=== PATIENT | female | born 1930 | race Caucasian/White ===

== ENCOUNTER 2017-04-10 22:03 | Inpatient (IN) | payer OTHER ==
[~2017-04-10] VITALS: Ht 162.6 cm; Wt 60.7 kg
[~2017-04-10 22:03] MED LIST: ASPI-664 PO; CARV6.2579 PO; CHOL20002 PO; CYAN100080 PO; FURO40TA4 PO; HYDR-902 PO; LISI-313 PO; MAGN400C PO; MULTI PO; ONDA4TAB14 PO; SIMV40TA3 PO; SPIR25TA PO
[2017-04-10 22:08] VITALS: Ht 162.6 cm; Wt 60.7 kg
[2017-04-11 00:03] VITALS: TEMP 98
--- NOTE | 2017-04-11 00:09 | ERD ---
ER Documentation Chief Complaint Chief Complaint mid abd pain w/ vomiting x 1 day HPI The patient is a 86-year-old female, presenting to the ER to the ER because of diffuse abdominal pain for 1 day, associated with vomiting and constipation. She has similar symptoms previously from small bowel obstruction, denies fever, chills, neck pain, chest pain, dyspnea, dysuria. Does not smoke nor drink Medical history: Dyslipidemia, cardiomyopathy, history of CHF Past surgical history: Hysterectomy, history of small bowel obstruction ROS All systems reviewed and are negative except as per history of present illness. Medications Home Meds Active Scripts Ondansetron (Ondansetron Odt) 4 Mg Tab.rapdis, 4 MG PO Q6H Y for NAUSEA AND/OR VOMITING, #30 TAB Prov:JUAN MIGUEL ANN MD 04/10/16 Hydrocodone/Acetaminophen ([place] 10-325 Tablet) 1 Each Tablet, 1 TAB PO Q6H Y for PAIN, #12 TAB Prov:JUAN MIGUEL ANN MD 04/10/16 Carvedilol* (Carvedilol*) 6.25 Mg Tablet, 6.25 MG PO BID for 30 Days, TAB 3 Refills Prov:MELISSA MCMILLAN 04/05/16 Furosemide* (Furosemide*) 40 Mg Tablet, 40 MG PO DAILY for 30 Days, TAB 3 Refills Prov:MELISSA MCMILLAN 04/05/16 Lisinopril* (Lisinopril*) 5 Mg Tablet, 5 MG PO DAILY for 30 Days, TAB 3 Refills Prov:MELISSA MCMILLAN 04/05/16 Spironolactone* (Aldactone*) 25 Mg Tablet, 12.5 MG PO DAILY for 30 Days, TAB 3 Refills Prov:MELISSA MCMILLAN 04/05/16 Reported Medications Multivitamins* (Theragran*) 1 Tab Tab, 1 TAB PO DAILY, TAB 04/03/16 Aspirin (Low Dose Aspirin) 81 Mg Tablet.dr, 81 MG PO DAILY, #30 TAB 04/03/16 Cyanocobalamin* (Vitamin B-12*) 1,000 Mcg Tablet.sa, 1000 MCG PO DAILY, TAB 06/23/15 Cholecalciferol (Vitamin D3) (Vitamin D-3) 2,000 Unit Tablet, 2000 UNIT PO DAILY 12/06/13 Magnesium Oxide (Mag Oxide) 400 Mg Capsule, 400 MG PO DAILY, CAP 12/06/13 Simvastatin (Simvastatin) 40 Mg Tablet, 40 MG PO HS 07/14/13 Allergies Allergies: Coded Allergies: Penicillins (Unverified Allergy, Unknown, 04/10/16) PMhx/Soc History of Surgery: Yes (HYSTERECTOMY) Anesthesia Reaction: No Hx Neurological Disorder: No Hx Respiratory Disorders: No Hx Cardiac Disorders: Yes (CARDIOMYOPATHY, CHF) Hx Psychiatric Problems: No Hx Miscellaneous Medical Probl: No Hx Alcohol Use: No Hx Substance Use: No Hx Tobacco Use: No Smoking Status: Never smoker Physical Exam Vitals Vital Signs Date Time Temp Pulse Resp B/P Pulse Ox O2 Delivery O2 Flow Rate FiO2 04/11/17 00:50 98 16 103/73 98 04/11/17 00:03 98.0 20 124/64 98 Room Air 04/10/17 22:08 98.0 126 20 124/64 98 Physical Exam Const: No acute distress. Head: Atraumatic. Eyes: Normal Conjunctiva. ENT: Normal External Ears, Nose and Mouth. Neck: Full range of motion. No meningismus. Resp: Clear to auscultation bilaterally. Cardio: Regular rate and rhythm. Abd: Soft, hypoactive bowel sounds, diffuse abdominal tenderness, no rigidity, rebound, CVA tenderness Skin: No petechiae or rashes. Back: No midline or flank tenderness. Ext: No cyanosis, or edema. Neur: Awake and alert. No focal deficit Psych: Normal Mood and Affect. Result Diagram: 04/11/17 0045 04/11/17 0045 Results 24 hrs Laboratory Tests Test 04/11/17 00:26 04/11/17 00:45 Bedside Urine pH (LAB) 5.5 Bedside Urine Protein (LAB) 1+ Bedside Urine Glucose (UA) Negative Bedside Urine Ketones (LAB) Negative Bedside Urine Blood Trace-intact Bedside Urine Nitrite (LAB) Negative Bedside Urine Leukocyte Esterase (L Negative White Blood Count 13.710^3/ul Red Blood Count 4.3310^6/ul Hemoglobin 13.6g/dl Hematocrit 40.5% Mean Corpuscular Volume 93.5fl Mean Corpuscular Hemoglobin 31.4pg Mean Corpuscular Hemoglobin Concent 33.6g/dl Red Cell Distribution Width 13.4% Platelet Count 15938^3/UL Mean Platelet Volume 10.7fl Neutrophils % 85.5% Lymphocytes % 9.5% Monocytes % 4.2% Eosinophils % 0.1% Basophils % 0.2% Nucleated Red Blood Cells % 0.0/100WBC Neutrophils # 11.710^3/ul Lymphocytes # 1.310^3/ul Monocytes # 0.610^3/ul Eosinophils # 0.010^3/ul Basophils # 0.010^3/ul Nucleated Red Blood Cells # 0.010^3/ul Sodium Level 140mmol/L Potassium Level 4.2mmol/L Chloride Level 99mmol/L Carbon Dioxide Level 27mmol/L Anion Gap 18 Blood Urea Nitrogen 30mg/dl Creatinine 1.07mg/dl Glucose Level 137mg/dl Calcium Level 10.2mg/dl Total Bilirubin 0.9mg/dl Direct Bilirubin 0.00mg/dl Indirect Bilirubin 0.9mg/dl Aspartate Amino Transf (AST/SGOT) 25IU/L Alanine Aminotransferase (ALT/SGPT) 31IU/L Alkaline Phosphatase 76IU/L Total Protein 7.9g/dl Albumin 4.5g/dl Globulin 3.40g/dl Albumin/Globulin Ratio 1.32 Lipase 44U/L Current Medications Medications (Trade) Dose Ordered Sig/Guera Route PRN Reason Start Time Stop Time Status Last Admin Dose Admin Morphine Sulfate (morphine) 2 mg ONCE STAT IV 04/11/17 00:41 04/11/17 00:42 DC 04/11/17 00:56 Ondansetron HCl 4 mg 4 mg ONCE STAT IV 04/11/17 00:41 04/11/17 00:42 DC 04/11/17 00:55 Sodium Chloride 1,000 ml @ 1,000 mls/hr Q1H ONCE IV 04/11/17 02:00 04/11/17 02:59 DC 04/11/17 02:04 Ciprofloxacin/ Dextrose 200 ml @ 200 mls/hr ONCE ONCE IVPB 04/11/17 02:30 04/11/17 03:29 DC 04/11/17 03:15 Metronidazole (Flagyl 500 Mg (Pmx)) 100 ml @ 100 mls/hr ONCE ONCE IVPB 04/11/17 02:30 04/11/17 03:29 DC 04/11/17 04:33 Ondansetron HCl (Zofran Inj) 4 mg Q4H PRN IV nausea 04/11/17 04:30 Morphine Sulfate (morphine) 2 mg Q2H PRN IV pain 04/11/17 04:30 Hydralazine HCl 25 mg 25 mg Q6H PRN PO abp>160 04/11/17 04:30 UNV Sodium Chloride (NS) 1,000 ml @ 75 mls/hr [id number] IV 04/11/17 04:30 Aspirin (Halfprin) 81 mg DAILY PO 04/11/17 09:00 UNV Carvedilol (Coreg) 6.25 mg BID PO 04/11/17 09:00 UNV Lisinopril (Zestril) 5 mg DAILY PO 04/11/17 09:00 UNV Miscellaneous Information 40 mg HS PO 04/11/17 21:00 UNV Procedures/[place] [id number] Radiology Main Line: [phone] DIAGNOSTIC IMAGING REPORT Patient: NAOMIE WELCH : 1930 Age: 86 Sex: F MR #: [id number] DOS: 04/11/17 0041 Ordering MD: KOBE FROST MD Location: E/R Room/Bed: PROCEDURE: CT abdomen and pelvis without intravenous contrast. CLINICAL INDICATION: Pain. TECHNIQUE: CT of the abdomen/pelvis was performed utilizing axial images with reconstructions in sagittal and coronal planes. The administered radiation dose is CTDI 6.7 mGy, DLP 379 mGy-cm. One or more of the following dose reduction techniques were used: automated exposure control, adjustment of the mA and/or kV according to patient size and/or use of iterative reconstruction technique. DICOM images are available. COMPARISON: 04/10/2016 FINDINGS: Visualized Chest: Pulmonary emphysematous changes are present. There is moderate cardiomegaly. Coronary artery calcifications are noted. A small hiatal hernia is noted. Abdomen: The spleen, pancreas, gallbladder,and adrenal glands are unremarkable. The liver is diffusely decreased in attenuation, compatible with hepatic steatosis. The kidneys are without hydronephrosis. No definite urinary calculi are seen. A large cyst is noted off of the interpolar left kidney. There is moderate dilatation of numerous small bowel loops throughout the abdomen. There is an abrupt transition point to collapsed small bowel in the vicinity of axial image 133 of series 2 in the right lower quadrant. Numerous diverticula are noted throughout the descending and sigmoid colon as well as along the right colon. The appendix is not seen. There is no evidence of intra-abdominal adenopathy or free fluid. Vascular calcifications are noted within the aorta and its branches. Pelvis: Prior hysterectomy is noted. The urinary bladder is unremarkable. There is no pelvic adenopathy of free fluid. Osseous structures: Unremarkable. IMPRESSION: Small bowel obstruction with a transition point in the right lower quadrant. Hepatic steatosis. Large left renal cyst. Colonic diverticulosis. RPTAT: HIKT .Kaushik Zambrano MD, MD Date Time Electronically viewed and signed by .Kaushik Zambrano MD, MD on 04/11/2017 02:02 .T/ CC: KOBE FROST MD MEDICAL MAKING DECISION: The patient is a 85-year-old female, presenting with acute small bowel obstruction, acute dehydration, hepatic steatosis, left renal cyst. She was treated with morphine 2 mg IV for pain, Zofran 4 mg IV for nausea , 1 L NS for acute dehydration, NG tube, Cipro IV, Flagyl IV for acute small bowel obstruction The differential diagnoses considered include but are not limited to cholelithiasis, cholecystitis, cystitis, pancreatitis, hepatitis, gastritis, peptic ulcer disease, gastric ulcer, appendicitis, diverticulitis, cholangitis, choledocholithiasis Consultation: I discussed the patient with the on-call surgeon Dr. Barriga at 2: 20 a.m., who was made aware of the lab, treatment, the patient condition. He accepted the consult Departure Diagnosis: Primary Impression: Small bowel obstruction Additional Impressions: Dehydration Hepatic steatosis Renal cyst, left Condition: Stable Comments I discussed the findings with the patient. I discussed the patient with her physician Dr. Cortez at 4 am who was made aware of the lab, the treatment, the patient condition. The patient is admitted to [facility] Disclaimer: Inadvertent spelling and grammatical errors are likely due to EHR/ dictation software use and do not reflect on the overall quality of patient care. Also, please note that the electronic time recorded on this note does not necessarily reflect the actual time of the patient encounter. KOBE FROST MD Apr 11, 2017 00:09
[2017-04-11 00:27] LABS: URINE BLOOD (Dip) POC Trace-intact (NEGATIVE)
[2017-04-11] MEDS ORDERED: morphine 2 MG INJ IV STA (00:41)
[2017-04-11] MEDS ORDERED: ONDANSETRON 4 MG INJ IV STA (00:41)
[2017-04-11 01:09] LABS: BASOPHILS % 0.2 % (0.0-2.0); EOSINOPHILS % 0.1 % (0.0-7.0); HEMATOCRIT 40.5 % (37.0-47.0); HEMOGLOBIN 13.6 g/dl (12.0-16.0); LYMPHOCYTES # 1.3 10^3/ul (0.8-2.9); LYMPHOCYTES % 9.5 % (15.0-51.0); MEAN CORPUSCULAR HEMOGLOBIN 31.4 pg (29.0-33.0); MEAN CORPUSCULAR HGB CONC 33.6 g/dl (32.0-37.0); MEAN CORPUSCULAR VOLUME 93.5 fl (82.0-101.0); MEAN PLATELET VOLUME 10.7 fl (7.4-10.4); MONOCYTE # 0.6 10^3/ul (0.3-0.9); MONOCYTES % 4.2 % (0.0-11.0); NEUTROPHIL # 11.7 10^3/ul (1.6-7.5); NEUTROPHILS % 85.5 % (39.0-77.0); PLATELET COUNT 248 10^3/UL (140-415); RED BLOOD COUNT 4.33 10^6/ul (4.20-5.40); RED CELL DISTRIBUTION WIDTH 13.4 % (11.5-14.5); WHITE BLOOD COUNT 13.7 10^3/ul (4.8-10.8)
[2017-04-11 01:27] LABS: ALBUMIN 4.5 g/dl (3.3-4.9); ALBUMIN/GLOBULIN RATIO 1.32; BILIRUBIN,INDIRECT 0.9 mg/dl (0-1.1); BILIRUBIN,TOTAL 0.9 mg/dl (0.2-1.3); CALCIUM 10.2 mg/dl (8.4-10.2); CREATININE 1.07 mg/dl (0.44-1.00); POTASSIUM 4.2 mmol/L (3.5-5.1); TOTAL PROTEIN 7.9 g/dl (6.1-8.1)
[2017-04-11] MEDS ORDERED: SOD CHLORIDE 0.9% 1,000 ML IV ONE (02:00)
--- NOTE | 2017-04-11 02:02 | RADRPT ---
PROCEDURE: CT abdomen and pelvis without intravenous contrast. CLINICAL INDICATION: Pain. TECHNIQUE: CT of the abdomen/pelvis was performed utilizing axial images with reconstructions in s agittal and coronal planes. The administered radiation dose is CTDI 6.7 mGy, DLP 379 mGy-cm. One or more of the following dose reduction techniques were used: automated exposure control, adjustment of the mA and/or kV according to patient size and/or use of iterative reconstruction technique. DICOM images are available. COMPARISON: 04/10/2016 FINDINGS: Visualized Chest: Pulmonary emphysematous changes are present. There is moderate cardiomegaly. Coron calista artery calcifications are noted. A small hiatal hernia is noted. Abdomen: The spleen, pancreas, gallbladder,and adrenal glands are unremarkable. The liver is diffusely dec reased in attenuation, compatible with hepatic steatosis. The kidneys are without hydronephrosis. No definite urinary calculi are seen. A large cyst is noted off of the interpolar left kidney. There is moderate dilatation of numerous small bowel loops throughout the abdomen. There is an abrup t transition point to collapsed small bowel in the vicinity of axial image 133 of series 2 in the ri ght lower quadrant. Numerous diverticula are noted throughout the descending and sigmoid colon as we ll as along the right colon. The appendix is not seen. There is no evidence of intra-abdominal adenopathy or free fluid. Vascular calcifications are noted within the aorta and its branches. Pelvis: Prior hysterectomy is noted. The urinary bladder is unremarkable. There is no pelvic adenopathy of free fluid. Osseous structures: Unremarkable. IMPRESSION: Small bowel obstruction with a transition point in the right lower quadrant. Hepatic steatosis. Large left renal cyst. Colonic diverticulosis. RPTAT: HIKT .Kaushik Zambrano MD, MD Date Time Electronically viewed and signed by .Kaushik Zambrano MD, on 04/11/2017 02:02 .T/
[2017-04-11] MEDS ORDERED: metroNIDAZOLE 500 MG/NS (PMX) 100 ML IVPB ONE (02:30)
[2017-04-11] MEDS ORDERED: CIPROFLOXACIN 400MG/D5W 200 ML IVPB ONE (02:30)
[2017-04-11] MEDS ORDERED: ONDANSETRON 4 MG INJ IV PRN (04:30)
--- NOTE | 2017-04-11 05:13 | RADRPT ---
PROCEDURE: XR Chest. CLINICAL INDICATION: Nasogastric tube placement TECHNIQUE: An AP view of the chest was obtained. COMPARISON: CR CHEST 04/10/2016; CR CHEST 04/03/2016; CR CHEST 06/23/2015; CR CHEST 10/27/2013 FINDINGS: The to the nasogastric tube projects over the mid upper abdomen. Lung volumes are low. There is prominence and coarsening of the interstitial markings. No pleural effusion or pneumothorax is seen. The cardiomediastinal silhouette is mildly enlarged. Calcificati ons are seen within the aortic arch. The osseous structures demonstrate senescent changes. IMPRESSION: 1. Chronic-appearing interstitial changes with probable superimposed interstitial edema, increased w hen compared to the prior examination 2. Mild cardiomegaly and aortic atherosclerosis. 3. Nasogastric tube in good position within the gastric lumen. RPTAT: HH .Unique Bonilla MD, Date Time Electronically viewed and signed by .Unique Bonilla MD, on 04/11/2017 05:13 .G/
[2017-04-11 05:48] VITALS: BP 101/52; RESP 18
[2017-04-11] MEDS: SOD CHLORIDE 0.9% 1,000 ML IV SCH ×2 (07:28→17:50)
[2017-04-11] MEDS: morphine 2 MG INJ IV PRN ×2 (07:28→11:16)
[2017-04-11 08:02] VITALS: BP 120/56; RESP 20
[2017-04-11] MEDS: LISINOPRIL 5 MG TAB PO SCH (09:00)
[2017-04-11] MEDS: ASPIRIN (EC) 81 MG TAB PO SCH ×2 (09:00→11:14)
[2017-04-11] MEDS ORDERED: NACL 0.9% 3 ML SYG IV SCH (12:00)
[2017-04-11] MEDS ORDERED: ACETAMINOPHEN 325 MG TAB PO PRN (12:00)
--- NOTE | 2017-04-11 12:08 | HP ---
Date/Time of Note Date/Time of Note DATE: 04/11/17 TIME: 11:37 Assessment/Plan VTE Prophylaxis VTE Prophylaxis Intervention: SCD's Lines/Catheters IV Catheter Type (from Nrs): Peripheral IV Assessment/Plan Assessment/Plan 86-year-old female with: 1. Small bowel obstruction on CAT scan of the abdomen and pelvis with the right lower quadrant, patient still with ongoing abdominal pain, however relieved with morphine. NG tube in place and to suction. Keep n.p.o. Continue IV fluids General surgery, Dr Barriga, consult pending and will follow-up recommendations , for now, will plan for a small bowel follow-through in a.m. 2. 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 She has been euvolemic. She has been compliant with her medications. 3. Congestive heart failure, chronic systolic dysfunction, patient euvolemic. Agree with normal saline at 75 cc/hr. 4. Moderate to severe mitral regurgitation, followed by cardiology as an outpatient. She has been stable. 5. Pulmonary hypertension: Respiratory status remains stable. 6. Hypertension: Blood pressure has been stable actually, we are holding her blood pressure medications. Prophylaxis: Protonix for GI prophylaxis, SCDs to lower extremity for DVT prophylaxis Disposition: N.p.o., NG tube, general surgery consult pending, small bowel follow-through in a.m. 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 She reports that these symptoms are similar to the one she was having a year and a half ago when she was admitted with small bowel obstruction. CAT scan of the abdomen and pelvis in the emergency department did show small bowel obstruction with a transition point in the right lower quadrant. Patient was placed n.p.o., NG tube placed. She is euvolemic, this morning she is having less nausea and vomiting with her NG tube to low intermittent suction however she still having abdominal pain requiring morphine for pain control. According to ER physician documentation, Dr. Barriga, from general surgery was called and he will be seeing the patient. Patient denies any chest pains or shortness of breath. She is currently on room air and well tolerated. ROS Constitutional: nausea Eyes: no complaints ENT: no complaints Respiratory: no complaints Cardiovascular: no complaints Gastrointestinal: nausea, pain (Abdomen and pain), vomiting Genitourinary: no complaints Musculoskeletal: no complaints Skin: no complaints Neurologic: no complaints Endocrine: no complaints Lymphatic: no complaints Psychological: no complaints Immunologic: no complaints PMH/Family/Social Past Medical History 1. Severe mitral regurgitation. The patient reports that she was diagnosed with congestive heart failure in 2001. 2. Congestive heart failure, chronic systolic dysfunction, EF 25%. 3. Hypertension 4. Pulmonary hypertension. 5. Previous episodes of small bowel obstruction, conservatively treated in the past and thought to be related to adhesions possibly Past Surgical History 1. Status post total hysterectomy, remotely. 2. Status post partial colectomy, remotely. Family History Significant Family History: no pertinent family hx Social History Alcohol Use: occasionally Smoking Status: Former smoker ( quit smoking 6 years ago and she used to smoke sporadically for 6 years) Drug Use: none Exam/Review of Systems Vital Signs Vitals Vital Signs Date Time Temp Pulse Resp B/P Pulse Ox O2 Delivery O2 Flow Rate FiO2 04/11/17 08:02 98.2 95 20 120/56 92 04/11/17 05:03 Room Air Exam Constitutional: alert, oriented, well developed Respiratory: clear to auscultation, normal air movement Cardiovascular: nl pulses, regular rate and rhythm Gastrointestinal: soft, tender (Diffuse mid abdomen more or less) Musculoskeletal: nl extremities to inspection, nl gait and stance Extremities: normal pulses 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, nl mental status, nl speech, nl strength Labs Result Diagram: 04/11/174404/11/1744 Medications Medications Current Medications Ondansetron HCl (Zofran Inj) 4 mg Q4H PRN IV nausea; Start 04/11/17 at 04:30 Morphine Sulfate (morphine) 2 mg Q2H PRN IV pain Last administered on 11:16; Admin Dose 2 MG; Start 04/11/17 at 04:30 Hydralazine HCl 25 mg 25 mg Q6H PRN PO abp>160; Start 04/11/17 at 04:30 Sodium Chloride (NS) 1,000 ml @ 75 mls/hr [id number] IV Last administered on 07:28; Admin Dose 75 MLS/HR; Start 04/11/17 at 04:30 Aspirin (Halfprin) 81 mg DAILY PO Last administered on 04/11/17 11:14; Admin Dose 81 MG; Start 04/11/17 at 09:00 Carvedilol (Coreg) 6.25 mg BID PO ; Start 04/11/17 at 09:00 Lisinopril (Zestril) 5 mg DAILY PO ; Start 04/11/17 at 09:00 Atorvastatin Calcium (Lipitor) 20 mg DAILY@21 PO ; Start 04/11/17 at 21:00 Procedures Procedures PROCEDURE: CT abdomen and pelvis without intravenous contrast. CLINICAL INDICATION: Pain. TECHNIQUE: CT of the abdomen/pelvis was performed utilizing axial images with reconstructions in sagittal and coronal planes. The administered radiation dose is CTDI 6.7 mGy, DLP 379 mGy-cm. One or more of the following dose reduction techniques were used: automated exposure control, adjustment of the mA and/or kV according to patient size and/or use of iterative reconstruction technique. DICOM images are available. COMPARISON: 04/10/2016 FINDINGS: Visualized Chest: Pulmonary emphysematous changes are present. There is moderate cardiomegaly. Coronary artery calcifications are noted. A small hiatal hernia is noted. Abdomen: The spleen, pancreas, gallbladder,and adrenal glands are unremarkable. The liver is diffusely decreased in attenuation, compatible with hepatic steatosis. The kidneys are without hydronephrosis. No definite urinary calculi are seen. A large cyst is noted off of the interpolar left kidney. There is moderate dilatation of numerous small bowel loops throughout the abdomen. There is an abrupt transition point to collapsed small bowel in the vicinity of axial image 133 of series 2 in the right lower quadrant. Numerous diverticula are noted throughout the descending and sigmoid colon as well as along the right colon. The appendix is not seen. There is no evidence of intra-abdominal adenopathy or free fluid. Vascular calcifications are noted within the aorta and its branches. Pelvis: Prior hysterectomy is noted. The urinary bladder is unremarkable. There is no pelvic adenopathy of free fluid. Osseous structures: Unremarkable. IMPRESSION: Small bowel obstruction with a transition point in the right lower quadrant. Hepatic steatosis. Large left renal cyst. Colonic diverticulosis. RPTAT: HIKT .Kuashik Zambrano MD, MD Date Time Electronically viewed and signed by .Kaushik Zambrano MD, on 04/11/2017 02:02 MELISSA MCMILLAN Apr 11, 2017 11:48 Colonic diverticulosis. RPTAT: HIKT .Kaushik Zambrano MD, Date Time Electronically viewed and signed by .Kaushik Zambrano MD, MD on 04/11/2017 02:02 MELISSA MCMILLAN Apr 11, 2017 11:48
[2017-04-11 15:47] VITALS: BP 115/57; RESP 18
[2017-04-11 19:53] VITALS: BP 116/67; RESP 20
[2017-04-11] MEDS: ATORVASTATIN 20 MG TAB PO SCH (21:00)
[2017-04-11 23:31] VITALS: BP 117/58; RESP 20
[2017-04-12] MEDS: SOD CHLORIDE 0.9% 1,000 ML IV SCH ×2 (02:15→21:35)
[2017-04-12 06:37] LABS: ALBUMIN 3.5 g/dl (3.3-4.9); ALBUMIN/GLOBULIN RATIO 1.4; BILIRUBIN,INDIRECT 0.6 mg/dl (0-1.1); BILIRUBIN,TOTAL 0.6 mg/dl (0.2-1.3); CALCIUM 8.8 mg/dl (8.4-10.2); CREATININE 0.87 mg/dl (0.44-1.00); MAGNESIUM 2.1 mg/dl (1.7-2.5); PHOSPHORUS 3.2 mg/dl (2.5-4.9)
[2017-04-12] MEDS: morphine 2 MG INJ IV PRN (06:46)
[2017-04-12] MEDS: PANTOPRAZOLE 40 MG INJ IV SCH (06:46)
[2017-04-12 07:14] VITALS: BP 117/61; RESP 19
[2017-04-12 08:17] LABS: BASOPHIL # 0.1 10^3/ul (0.0-0.1); BASOPHILS % 0.5 % (0.0-2.0); EOSINOPHILS # 0.2 10^3/ul (0.0-0.5); EOSINOPHILS % 1.4 % (0.0-7.0); HEMATOCRIT 35.6 % (37.0-47.0); HEMOGLOBIN 11.6 g/dl (12.0-16.0); LYMPHOCYTES # 2.1 10^3/ul (0.8-2.9); LYMPHOCYTES % 19.8 % (15.0-51.0); MEAN CORPUSCULAR HGB CONC 32.6 g/dl (32.0-37.0); MEAN CORPUSCULAR VOLUME 95.2 fl (82.0-101.0); MONOCYTE # 0.9 10^3/ul (0.3-0.9); MONOCYTES % 8.3 % (0.0-11.0); NEUTROPHIL # 7.3 10^3/ul (1.6-7.5); NEUTROPHILS % 69.6 % (39.0-77.0); PLATELET COUNT 197 10^3/UL (140-415); RED BLOOD COUNT 3.74 10^6/ul (4.20-5.40); RED CELL DISTRIBUTION WIDTH 13.8 % (11.5-14.5); WHITE BLOOD COUNT 10.5 10^3/ul (4.8-10.8)
[2017-04-12] MEDS ORDERED: IOHEXOL 300MG/ML 150 ML BTL ONE (09:21)
[2017-04-12] MEDS ORDERED: IOHEXOL 300MG/ML 30 ML BTL ONE (09:21)
--- NOTE | 2017-04-12 10:36 | RADRPT ---
PROCEDURE: Small-bowel follow-through examination CLINICAL INDICATION: Abdominal pain, concern for obstruction TECHNIQUE: Isovue contrast was administered the enteric tube and several spot and overhead radiogr aphs were obtained. COMPARISON: CT of the abdomen and pelvis dated April 11, 2017 FINDINGS: Operations Controller image of the abdomen pelvis demonstrates an enteric tube with its tip in the stomach. There ar e degenerative changes of the lumbar spine. There is no acute abnormality. Progressive radiographs over the course of 30 minutes demonstrate contrast within the stomach, small bowel, and colon. There are mildly dilated loops of small bowel measuring up to 3.5 cm in diameter. There is no complete obstruction identified. IMPRESSION: 1. Enteric contrast reaches the large bowel in 30 minutes indicating there is no complete obstructi on. Mildly dilated loops of small bowel are still present. RPTAT: UU .Osmin Robin MD, Date Time Electronically viewed and signed by .Osmin Robin MD, on 04/12/2017 10:36 .K/
[2017-04-12] MEDS: LISINOPRIL 5 MG TAB PO SCH (11:00)
[2017-04-12] MEDS: ASPIRIN (EC) 81 MG TAB PO SCH (11:01)
--- NOTE | 2017-04-12 12:43 | PN ---
Date/Time of Note Date/Time of Note DATE: 04/12/17 TIME: 12:36 Assessment/Plan VTE Prophylaxis VTE Prophylaxis Intervention: SCD's Lines/Catheters IV [facility] Peripheral IV Assessment/Plan Assessment/Plan 86-year-old female with: 1. Small bowel obstruction on CAT scan of the abdomen and pelvis with the right lower quadrant. Patient symptoms seems to be resolved currently, she actually went to small bowel follow-through and results are indicating no complete obstruction, she does have mild dilated small bowel loops however. We will discuss with general surgery consult, for now will will attempt clear liquid diet. We will remove NG tube if indicated. Continue IV fluids I will get in touch with general surgery, Dr Barriga, consult pending and will follow-up recommendations, for now. 2. 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 She has been euvolemic. Continue home medications. 3. Congestive heart failure, chronic systolic dysfunction, patient euvolemic. Agree with normal saline at 75 cc/hr until able to tolerate p.o. 4. Moderate to severe mitral regurgitation, followed by cardiology as an outpatient. She has been stable. 5. Pulmonary hypertension: Respiratory status remains stable. 6. Hypertension: Blood pressure has been stable actually, we are holding her blood pressure medications. Prophylaxis: Protonix for GI prophylaxis, SCDs to lower extremity for DVT prophylaxis Disposition: Clear liquids to be started, I will discuss small bowel follow- through results with general surgery and if okay will D/C NG tube. Subjective 24 Hr Interval Summary Free Text/Dictation Patient remained stable, she denies abdominal pain currently, she went for small bowel follow-through and apparently after 30 minutes the contrast is in the colon and there is no signs of complete obstruction. She does have some mildly dilated small bowel loops. She is still n.p.o. We will follow up with the general surgery, if no contraindication patient to be started on clear liquids. Exam/Review of Systems Vital Signs Vitals Vital Signs Date Time Temp Pulse Resp B/P Pulse Ox O2 Delivery O2 Flow Rate FiO2 04/12/17 07:14 98.2 77 19 117/61 99 04/11/17 05:03 Room Air Intake and Output 12/04/11/17 04/12/17 15:00 23:00 07:00 Intake Total 750 ml 475 ml Balance 750 ml 475 ml Exam Constitutional: alert, oriented, well developed Respiratory: clear to auscultation, normal air movement Cardiovascular: nl pulses, regular rate and rhythm Gastrointestinal: non-tender, other (NG tube is currently in place), soft Musculoskeletal: nl extremities to inspection, nl gait and stance Extremities: normal pulses, other (No edema, clubbing or cyanosis) Neurological: MATERIAL ATTENDANT II-XII intact, nl mental status, nl speech, nl strength Results Result Diagram: 04/12/175 04/12/176 Results 24 hrs Laboratory Tests Test 04/12/17 04:45 04/12/17 04:46 White Blood Count 10.5 # Red Blood Count 3.74 L Hemoglobin 11.6 L Hematocrit 35.6 L Mean Corpuscular Volume 95.2 Mean Corpuscular Hemoglobin 31.0 Mean Corpuscular Hemoglobin Concent 32.6 Red Cell Distribution Width 13.8 Platelet Count 197 # Mean Platelet Volume 11.0 H Neutrophils % 69.6 Lymphocytes % 19.8 Monocytes % 8.3 Eosinophils % 1.4 Basophils % 0.5 Nucleated Red Blood Cells % 0.0 Neutrophils # 7.3 Lymphocytes # 2.1 Monocytes # 0.9 Eosinophils # 0.2 Basophils # 0.1 Nucleated Red Blood Cells # 0.0 Sodium Level 144 Potassium Level 4.0 Chloride Level 108 Carbon Dioxide Level 24 Anion Gap 16 Blood Urea Nitrogen 21 H Creatinine 0.87 Glucose Level 92 # Calcium Level 8.8 Phosphorus Level 3.2 Magnesium Level 2.1 Total Bilirubin 0.6 Direct Bilirubin 0.00 Indirect Bilirubin 0.6 Aspartate Amino Transf (AST/SGOT) 21 Alanine Aminotransferase (ALT/SGPT) 30 Alkaline Phosphatase 58 Total Protein 6.0 #L Albumin 3.5 # Globulin 2.50 Albumin/Globulin Ratio 1.40 Medications Medications Current Medications Ondansetron HCl (Zofran Inj) 4 mg Q4H PRN IV nausea; Start 04/11/17 at 04:30 Morphine Sulfate (morphine) 2 mg Q2H PRN IV pain Last administered on t 06:46; Admin Dose 2 MG; Start 04/11/17 at 04:30 Hydralazine HCl 25 mg 25 mg Q6H PRN PO abp>160; Start 04/11/17 at 04:30 Sodium Chloride (NS) 1,000 ml @ 75 mls/hr [id number] IV Last administered on 02:15; Admin Dose 75 MLS/HR; Start 04/11/17 at 04:30 Aspirin (Halfprin) 81 mg DAILY PO Last administered on 04/12/17 11:01; Admin Dose 81 MG; Start 04/11/17 at 09:00 Carvedilol (Coreg) 6.25 mg BID PO Last administered on 04/12/17 11:01; Admin Dose 6.25 MG; Start 04/11/17 at 09:00 Lisinopril (Zestril) 5 mg DAILY PO Last administered on 04/12/17 11:00; Admin Dose 5 MG; Start 04/11/17 at 09:00 Atorvastatin Calcium (Lipitor) 20 mg DAILY@21 PO ; Start 04/11/17 at 21:00 Acetaminophen (Tylenol Tab) 650 mg Q6H PRN PO PAIN LEVEL 1-3 OR FEVER; Start 04/11/17 at 12:00 Pantoprazole (Protonix Iv) 40 mg DAILY@06 IV Last administered on 04/12/17 06 :46; Admin Dose 40 MG; Start 04/12/17 at 06:00 MELISSA MCMILLAN Apr 12, 2017 12:43
--- NOTE | 2017-04-12 15:11 | CONS ---
Date/Time of Note Date/Time of Note DATE: 04/12/17 TIME: 15:11 Assessment/Plan Assessment/Plan Chief Complaint/Hosp Course Abdominal pain: pSBO likely secondary to adhesions: no e/o mass lesion/tumor on CT or SBFT Problems: (1) Small bowel obstruction Status: Acute Comment: Resolving: Advance diet as tolerated NG tube removed by me at bedside If fails PO trial, will reconsider surgery and if SBOs keep recurring with increased frequency will reassess need for lysis of adhesions but for now pt seems to be doing well with nonoperative management. Consultation Date/Type/Reason Admit Date/Time Apr 11, 2017 at 04:05 Date of Consultation: Apr 12, 2017 Type of Consultation: general surgery Reason for Consultation SBO Referring Provider: MELISSA MCMILLAN Hx of Present Illness 86 F p/w two days abd pain at periumb area accompanied with nausea and vomiting. CT scan in ER showed SBO. 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 She has had two episodes of SBO before last one being 1.5 yrs ago and another one a few years before that. Since admission pt has had an NG tube, IV fluid resuscitation, and a SBFT was done this morning showing the patient was able to have contrast reach the colon in 30 minutes and the patient reports this AM she had a normal BM and her pain has since resolved. Constitutional: no complaints Eyes: no complaints ENT: no complaints Respiratory: no complaints Cardiovascular: no complaints Gastrointestinal: decreased appetite, nausea, pain, passing stool (as of this morning), vomiting, No constipation, No diarrhea Past Medical History Medical History: congestive heart failure, hypertension Past Surgical History Past Surgical Hx: bowel resection Family History Significant Family History: no pertinent family hx Social History Alcohol Use: occasionally Smoking Status: Former smoker ( quit smoking 6 years ago and she used to smoke sporadically for 6 years) Drug Use: none Exam/Review of Systems Vital Signs Vitals Vital Signs Date Time Temp Pulse Resp B/P Pulse Ox O2 Delivery O2 Flow Rate FiO2 04/12/17 07:14 98.2 77 19 117/61 99 04/11/17 05:03 Room Air Intake and Output 04/11/17 04/11/17 04/12/17 15:00 23:00 07:00 Intake Total 750 ml 475 ml Balance 750 ml 475 ml Exam Constitutional: alert, oriented, well developed Psych: nl mood/affect, no complaints Head: atraumatic, normocephalic Eyes: EOMI, nl conjunctiva ENMT: nl external ears & nose, nl lips & teeth Neck: non-tender, supple Respiratory: clear to auscultation, normal air movement Cardiovascular: nl pulses, regular rate and rhythm Gastrointestinal: nl liver, spleen, non-tender, soft, surgical scars, No distended, No firm, No mass, No rebound or guarding, No tender Musculoskeletal: nl extremities to inspection Extremities: normal pulses Neurological: INSTALL AND REPAIR TECHNICIAN II-XII intact, nl mental status, nl speech Skin: nl turgor, No rash or lesions Results Result Diagram: 04/12/175 04/12/17 0446 Results 24 hrs Laboratory Tests Test 04/12/17 04:45 04/12/17 04:46 White Blood Count 10.5 # Red Blood Count 3.74 L Hemoglobin 11.6 L Hematocrit 35.6 L Mean Corpuscular Volume 95.2 Mean Corpuscular Hemoglobin 31.0 Mean Corpuscular Hemoglobin Concent 32.6 Red Cell Distribution Width 13.8 Platelet Count 197 # Mean Platelet Volume 11.0 H Neutrophils % 69.6 Lymphocytes % 19.8 Monocytes % 8.3 Eosinophils % 1.4 Basophils % 0.5 Nucleated Red Blood Cells % 0.0 Neutrophils # 7.3 Lymphocytes # 2.1 Monocytes # 0.9 Eosinophils # 0.2 Basophils # 0.1 Nucleated Red Blood Cells # 0.0 Sodium Level 144 Potassium Level 4.0 Chloride Level 108 Carbon Dioxide Level 24 Anion Gap 16 Blood Urea Nitrogen 21 H Creatinine 0.87 Glucose Level 92 # Calcium Level 8.8 Phosphorus Level 3.2 Magnesium Level 2.1 Total Bilirubin 0.6 Direct Bilirubin 0.00 Indirect Bilirubin 0.6 Aspartate Amino Transf (AST/SGOT) 21 Alanine Aminotransferase (ALT/SGPT) 30 Alkaline Phosphatase 58 Total Protein 6.0 #L Albumin 3.5 # Globulin 2.50 Albumin/Globulin Ratio 1.40 Imaging Free Text/Dictation CT abd pelvis: SBO with transition point at RLQ SBFT: contrast reaches colon in 30 min. Medications Medications Current Medications Ondansetron HCl (Zofran Inj) 4 mg Q4H PRN IV nausea; Start 04/11/17 at 04:30 Morphine Sulfate (morphine) 2 mg Q2H PRN IV pain Last administered on 06:46; Admin Dose 2 MG; Start 04/11/17 at 04:30 Hydralazine HCl 25 mg 25 mg Q6H PRN PO abp>160; Start 04/11/17 at 04:30 Sodium Chloride (NS) 1,000 ml @ 75 mls/hr [id number] IV Last administered on 02:15; Admin Dose 75 MLS/HR; Start 04/11/17 at 04:30 Aspirin (Halfprin) 81 mg DAILY PO Last administered on 04/12/17 11:01; Admin Dose 81 MG; Start 04/11/17 at 09:00 Carvedilol (Coreg) 6.25 mg BID PO Last administered on 04/12/17 11:01; Admin Dose 6.25 MG; Start 04/11/17 at 09:00 Lisinopril (Zestril) 5 mg DAILY PO Last administered on 04/12/17 11:00; Admin Dose 5 MG; Start 04/11/17 at 09:00 Atorvastatin Calcium (Lipitor) 20 mg DAILY@21 PO ; Start 04/11/17 at 21:00 Acetaminophen (Tylenol Tab) 650 mg Q6H PRN PO PAIN LEVEL 1-3 OR FEVER; Start 04/11/17 at 12:00 Pantoprazole (Protonix Iv) 40 mg DAILY@06 IV Last administered on 04/12/17 06 :46; Admin Dose 40 MG; Start 04/12/17 at 06:00 VI TRONCOSO Apr 12, 2017 15:11
[2017-04-12 15:18] VITALS: BP 120/66; RESP 18
[2017-04-12 20:18] VITALS: BP 95/51; RESP 20
[2017-04-12 21:12] VITALS: BP 100/55; PULSE 68; RESP 18
[2017-04-12] MEDS: ATORVASTATIN 20 MG TAB PO SCH (21:34)
[2017-04-13 05:26] LABS: BASOPHILS % 0.5 % (0.0-2.0); EOSINOPHILS # 0.2 10^3/ul (0.0-0.5); EOSINOPHILS % 2.5 % (0.0-7.0); HEMATOCRIT 29.5 % (37.0-47.0); HEMOGLOBIN 9.5 g/dl (12.0-16.0); LYMPHOCYTES % 24.8 % (15.0-51.0); MEAN CORPUSCULAR HEMOGLOBIN 30.3 pg (29.0-33.0); MEAN CORPUSCULAR HGB CONC 32.2 g/dl (32.0-37.0); MEAN CORPUSCULAR VOLUME 93.9 fl (82.0-101.0); MEAN PLATELET VOLUME 10.6 fl (7.4-10.4); MONOCYTE # 0.7 10^3/ul (0.3-0.9); MONOCYTES % 9.1 % (0.0-11.0); NEUTROPHILS % 62.8 % (39.0-77.0); PLATELET COUNT 150 10^3/UL (140-415); RED BLOOD COUNT 3.14 10^6/ul (4.20-5.40); RED CELL DISTRIBUTION WIDTH 13.9 % (11.5-14.5)
[2017-04-13] MEDS: PANTOPRAZOLE 40 MG INJ IV SCH (05:51)
[2017-04-13 06:08] LABS: PHOSPHORUS 2.8 mg/dl (2.5-4.9)
[2017-04-13 06:19] LABS: ALBUMIN 2.9 g/dl (3.3-4.9); ALBUMIN/GLOBULIN RATIO 1.07; BILIRUBIN,INDIRECT 0.6 mg/dl (0-1.1); BILIRUBIN,TOTAL 0.6 mg/dl (0.2-1.3); CALCIUM 8.7 mg/dl (8.4-10.2); CREATININE 0.78 mg/dl (0.44-1.00); POTASSIUM 3.9 mmol/L (3.5-5.1); TOTAL PROTEIN 5.6 g/dl (6.1-8.1)
[2017-04-13 08:13] VITALS: BP 129/70; RESP 20
[2017-04-13] MEDS: LISINOPRIL 5 MG TAB PO SCH (08:22)
[2017-04-13] MEDS: ASPIRIN (EC) 81 MG TAB PO SCH (08:22)
--- NOTE | 2017-04-13 11:28 | PN ---
Date/Time of Note Date/Time of Note DATE: 04/13/17 TIME: 11:26 Assessment/Plan VTE Prophylaxis VTE Prophylaxis Intervention: LMWH Lines/Catheters IV Catheter Type (from Nrsg): Peripheral IV Assessment/Plan Assessment/Plan 1. gi: sbo, resolving, tolerating diet and took 75% of tyray this am per nursing report 2. anemia: worsening Hgb, unclear if this represents active blood loss or ongoing dilutional effect, monitor 3. increase activity Subjective 24 Hr Interval Summary Free Text/Dictation no compklaints, having flatus 3x bm yest no ambulation Exam/Review of Systems Vital Signs Vitals Vital Signs Date Time Temp Pulse Resp B/P Pulse Ox O2 Delivery O2 Flow Rate FiO2 04/13/17 08:13 98.3 81 20 129/70 93 04/12/17 21:12 Room Air Intake and Output 04/12/17 04/12/17 04/13/17 15:00 23:00 07:00 Intake Total 1040 ml 1000 ml Output Total 900 ml Balance 1040 ml 100 ml Exam nad, ctab, rrr, distended, not jonathon Results Result Diagram: 04/13/17 0504 04/13/17 0504 Results 24 hrs Laboratory Tests Test 04/13/17 05:04 White Blood Count 8.0 # Red Blood Count 3.14 L Hemoglobin 9.5 L Hematocrit 29.5 L Mean Corpuscular Volume 93.9 Mean Corpuscular Hemoglobin 30.3 Mean Corpuscular Hemoglobin Concent 32.2 Red Cell Distribution Width 13.9 Platelet Count 150 # Mean Platelet Volume 10.6 H Neutrophils % 62.8 Lymphocytes % 24.8 Monocytes % 9.1 Eosinophils % 2.5 Basophils % 0.5 Nucleated Red Blood Cells % 0.0 Neutrophils # 5.0 Lymphocytes # 2.0 Monocytes # 0.7 Eosinophils # 0.2 Basophils # 0.0 Nucleated Red Blood Cells # 0.0 Sodium Level 142 Potassium Level 3.9 Chloride Level 108 Carbon Dioxide Level 27 Anion Gap 11 Blood Urea Nitrogen 18 Creatinine 0.78 Glucose Level 93 Calcium Level 8.7 Phosphorus Level 2.8 Magnesium Level 2.0 Total Bilirubin 0.6 Direct Bilirubin 0.00 Indirect Bilirubin 0.6 Aspartate Amino Transf (AST/SGOT) 16 Alanine Aminotransferase (ALT/SGPT) 24 Alkaline Phosphatase 46 Total Protein 5.6 L Albumin 2.9 L Globulin 2.70 Albumin/Globulin Ratio 1.07 Medications Medications Current Medications Ondansetron HCl (Zofran Inj) 4 mg Q4H PRN IV nausea; Start 04/11/17 at 04:30 Morphine Sulfate (morphine) 2 mg Q2H PRN IV pain Last administered on 06:46; Admin Dose 2 MG; Start 04/11/17 at 04:30 Hydralazine HCl 25 mg 25 mg Q6H PRN PO abp>160; Start 04/11/17 at 04:30 Sodium Chloride (NS) 1,000 ml @ 75 mls/hr [id number] IV Last administered on 21:35; Admin Dose 75 MLS/HR; Start 04/11/17 at 04:30 Aspirin (Halfprin) 81 mg DAILY PO Last administered on 04/13/17 08:22; Admin Dose 81 MG; Start 04/11/17 at 09:00 Carvedilol (Coreg) 6.25 mg BID PO Last administered on 04/13/17 08:23; Admin Dose 6.25 MG; Start 04/11/17 at 09:00 Lisinopril (Zestril) 5 mg DAILY PO Last administered on 04/13/17 08:22; Admin Dose 5 MG; Start 04/11/17 at 09:00 Atorvastatin Calcium (Lipitor) 20 mg DAILY@21 PO Last administered on 21:34; Admin Dose 20 MG; Start 04/11/17 at 21:00 Acetaminophen (Tylenol Tab) 650 mg Q6H PRN PO PAIN LEVEL 1-3 OR FEVER Last administered on 04/12/17 21:35; Admin Dose 650 MG; Start 04/11/17 at 12:00 Pantoprazole (Protonix Iv) 40 mg DAILY@06 IV Last administered on 04/13/17 05 :51; Admin Dose 40 MG; Start 04/12/17 at 06:00 SHARMAINE TITUS MD Apr 13, 2017 11:28
[2017-04-13] MEDS: SOD CHLORIDE 0.9% 1,000 ML IV SCH ×2 (12:09→21:33)
--- NOTE | 2017-04-13 15:04 | CONS ---
Date/Time of Note Date/Time of Note DATE: 04/13/17 TIME: 15:03 Consult Date/Type/Reason Admit Date/Time Apr 11, 2017 at 04:05 Initial Consult Date 04/12/17 Type of Consultation: general surgery Ordering Provider: MELISSA MCMILLAN Subjective patient doing well tolerating a regular diet with no n/v abdominal pain resolved. abd soft nt nd Rec: OK to DC home from surgical standpoint, SBO resolved. F/U at my office as needed. Objective Vital Signs Date Time Temp Pulse Resp B/P Pulse Ox O2 Delivery O2 Flow Rate FiO2 04/13/17 08:13 98.3 81 20 129/70 93 04/12/17 21:12 Room Air Intake and Output 04/12/17 04/12/17 04/13/17 15:00 23:00 07:00 Intake Total 1040 ml 1000 ml Output Total 900 ml Balance 1040 ml 100 ml Results/Medications Result Diagram: 04/13/17 0504 04/13/17 0504 Results 24 hrs Laboratory Tests Test 04/13/17 05:04 White Blood Count 8.0 # Red Blood Count 3.14 L Hemoglobin 9.5 L Hematocrit 29.5 L Mean Corpuscular Volume 93.9 Mean Corpuscular Hemoglobin 30.3 Mean Corpuscular Hemoglobin Concent 32.2 Red Cell Distribution Width 13.9 Platelet Count 150 # Mean Platelet Volume 10.6 H Neutrophils % 62.8 Lymphocytes % 24.8 Monocytes % 9.1 Eosinophils % 2.5 Basophils % 0.5 Nucleated Red Blood Cells % 0.0 Neutrophils # 5.0 Lymphocytes # 2.0 Monocytes # 0.7 Eosinophils # 0.2 Basophils # 0.0 Nucleated Red Blood Cells # 0.0 Sodium Level 142 Potassium Level 3.9 Chloride Level 108 Carbon Dioxide Level 27 Anion Gap 11 Blood Urea Nitrogen 18 Creatinine 0.78 Glucose Level 93 Calcium Level 8.7 Phosphorus Level 2.8 Magnesium Level 2.0 Total Bilirubin 0.6 Direct Bilirubin 0.00 Indirect Bilirubin 0.6 Aspartate Amino Transf (AST/SGOT) 16 Alanine Aminotransferase (ALT/SGPT) 24 Alkaline Phosphatase 46 Total Protein 5.6 L Albumin 2.9 L Globulin 2.70 Albumin/Globulin Ratio 1.07 Medications Current Medications Ondansetron HCl (Zofran Inj) 4 mg Q4H PRN IV nausea; Start 04/11/17 at 04:30 Morphine Sulfate (morphine) 2 mg Q2H PRN IV pain Last administered on 06:46; Admin Dose 2 MG; Start 04/11/17 at 04:30 Hydralazine HCl 25 mg 25 mg Q6H PRN PO abp>160; Start 04/11/17 at 04:30 Sodium Chloride (NS) 1,000 ml @ 75 mls/hr [id number] IV Last administered on 12:09; Admin Dose 75 MLS/HR; Start 04/11/17 at 04:30 Aspirin (Halfprin) 81 mg DAILY PO Last administered on 04/13/17 08:22; Admin Dose 81 MG; Start 04/11/17 at 09:00 Carvedilol (Coreg) 6.25 mg BID PO Last administered on 04/13/17 08:23; Admin Dose 6.25 MG; Start 04/11/17 at 09:00 Lisinopril (Zestril) 5 mg DAILY PO Last administered on 04/13/17 08:22; Admin Dose 5 MG; Start 04/11/17 at 09:00 Atorvastatin Calcium (Lipitor) 20 mg DAILY@21 PO Last administered on 21:34; Admin Dose 20 MG; Start 04/11/17 at 21:00 Acetaminophen (Tylenol Tab) 650 mg Q6H PRN PO PAIN LEVEL 1-3 OR FEVER Last administered on 04/12/17 21:35; Admin Dose 650 MG; Start 04/11/17 at 12:00 Pantoprazole (Protonix Iv) 40 mg DAILY@06 IV Last administered on 04/13/17 05 :51; Admin Dose 40 MG; Start 04/12/17 at 06:00 Assessment/Plan Chief Complaint/Hosp Course Abdominal pain: pSBO likely secondary to adhesions: no e/o mass lesion/tumor on CT or SBFT Problems: VI TRONCOSO Apr 13, 2017 15:04
[2017-04-13 15:27] VITALS: BP 114/57; RESP 16
[2017-04-13 18:00] VITALS: BP 118/65; PULSE 74; RESP 17
[2017-04-13 19:40] VITALS: BP 116/58; PULSE 90; RESP 18
[2017-04-13 20:00] VITALS: BP 116/60; RESP 18
[2017-04-13] MEDS: ATORVASTATIN 20 MG TAB PO SCH (21:32)
[2017-04-14] VITALS (9 sets, daily range): BP systolic 109–127; BP diastolic 56–84; PULSE 74–107; RESP 16–22
[2017-04-14] MEDS: morphine 2 MG INJ IV PRN (02:43)
[2017-04-14] MEDS: PANTOPRAZOLE 40 MG INJ IV SCH (05:44)
[2017-04-14 06:57] LABS: BASOPHILS % 0.3 % (0.0-2.0); EOSINOPHILS # 0.2 10^3/ul (0.0-0.5); EOSINOPHILS % 1.9 % (0.0-7.0); HEMATOCRIT 32.9 % (37.0-47.0); HEMOGLOBIN 10.7 g/dl (12.0-16.0); LYMPHOCYTES # 2.2 10^3/ul (0.8-2.9); LYMPHOCYTES % 19.6 % (15.0-51.0); MEAN CORPUSCULAR HEMOGLOBIN 30.6 pg (29.0-33.0); MEAN CORPUSCULAR HGB CONC 32.5 g/dl (32.0-37.0); MEAN PLATELET VOLUME 11.5 fl (7.4-10.4); MONOCYTE # 0.9 10^3/ul (0.3-0.9); MONOCYTES % 8.4 % (0.0-11.0); NEUTROPHIL # 7.7 10^3/ul (1.6-7.5); NEUTROPHILS % 69.4 % (39.0-77.0); PLATELET COUNT 155 10^3/UL (140-415); RED CELL DISTRIBUTION WIDTH 13.4 % (11.5-14.5); WHITE BLOOD COUNT 11.1 10^3/ul (4.8-10.8)
[2017-04-14] MEDS: ASPIRIN (EC) 81 MG TAB PO SCH (09:25)
[2017-04-14] MEDS: LISINOPRIL 5 MG TAB PO SCH (09:25)
--- NOTE | 2017-04-14 09:46 | CONS ---
Date/Time of Note Date/Time of Note DATE: 04/14/17 TIME: 09:44 Consult Date/Type/Reason Admit Date/Time Apr 11, 2017 at 04:05 Initial Consult Date 04/12/17 Type of Consultation: general surgery Ordering Provider: MELISSA MCMILLAN Subjective reports feeling sick but no f/c/n/v; + flatus, + BM, tolerating PO meals Objective Vital Signs Date Time Temp Pulse Resp B/P Pulse Ox O2 Delivery O2 Flow Rate FiO2 04/14/17 07:17 98.9 119 18 121/84 95 04/14/17 06:33 Nasal Cannula 2.0 Intake and Output 04/13/17 04/13/17 04/14/17 15:00 23:00 07:00 Intake Total 400 ml 1075 ml 900 ml Output Total 1000 ml Balance 400 ml 1075 ml -100 ml Exam a/o nad abd soft nt nd Results/Medications Result Diagram: 04/14/17 0508 04/13/17 0504 Results 24 hrs Laboratory Tests Test 04/14/17 05:08 White Blood Count 11.1 #H Red Blood Count 3.50 L Hemoglobin 10.7 L Hematocrit 32.9 L Mean Corpuscular Volume 94.0 Mean Corpuscular Hemoglobin 30.6 Mean Corpuscular Hemoglobin Concent 32.5 Red Cell Distribution Width 13.4 Platelet Count 155 Mean Platelet Volume 11.5 H Neutrophils % 69.4 Lymphocytes % 19.6 Monocytes % 8.4 Eosinophils % 1.9 Basophils % 0.3 Nucleated Red Blood Cells % 0.0 Neutrophils # 7.7 H Lymphocytes # 2.2 Monocytes # 0.9 Eosinophils # 0.2 Basophils # 0.0 Nucleated Red Blood Cells # 0.0 Medications Current Medications Ondansetron HCl (Zofran Inj) 4 mg Q4H PRN IV nausea; Start 04/11/17 at 04:30 Morphine Sulfate (morphine) 2 mg Q2H PRN IV pain Last administered on 02:43; Admin Dose 2 MG; Start 04/11/17 at 04:30 Hydralazine HCl 25 mg 25 mg Q6H PRN PO abp>160; Start 04/11/17 at 04:30 Sodium Chloride (NS) 1,000 ml @ 75 mls/hr [id number] IV Last administered on 12:09; Admin Dose 75 MLS/HR; Start 04/11/17 at 04:30 Aspirin (Halfprin) 81 mg DAILY PO Last administered on 04/14/17 09:25; Admin Dose 81 MG; Start 04/11/17 at 09:00 Carvedilol (Coreg) 6.25 mg BID PO Last administered on 04/14/17 09:26; Admin Dose 6.25 MG; Start 04/11/17 at 09:00 Lisinopril (Zestril) 5 mg DAILY PO Last administered on 04/14/17 09:25; Admin Dose 5 MG; Start 04/11/17 at 09:00 Atorvastatin Calcium (Lipitor) 20 mg DAILY@21 PO Last administered on 21:32; Admin Dose 20 MG; Start 04/11/17 at 21:00 Acetaminophen (Tylenol Tab) 650 mg Q6H PRN PO PAIN LEVEL 1-3 OR FEVER Last administered on 04/12/17 21:35; Admin Dose 650 MG; Start 04/11/17 at 12:00 Pantoprazole (Protonix Iv) 40 mg DAILY@06 IV Last administered on 04/14/17 05 :44; Admin Dose 40 MG; Start 04/12/17 at 06:00 Assessment/Plan Chief Complaint/Hosp Course Abdominal pain: pSBO likely secondary to adhesions: no e/o mass lesion/tumor on CT or SBFT Problems: Additional Assessment/Plan pSBO resolved workup patient's systemic sx per internal medicine will sign off. please reconsult as needed. thank you for this consult VI TRONCOSO Apr 14, 2017 09:46
--- NOTE | 2017-04-14 11:25 | PN ---
Date/Time of Note Date/Time of Note DATE: 04/14/17 TIME: 11:23 Assessment/Plan VTE Prophylaxis VTE Prophylaxis Intervention: ambulation Lines/Catheters IV Catheter Type (from Nrsg): Saline Lock Assessment/Plan Assessment/Plan 1. cards: back, l arm pain with sob, will r/o cardiac cause, serial trop, echo, stress 2. neuro: r/o cervical radiculopathy as cause of l aarm pain 3. gi: sbo resolving 4. transfer tele Subjective 24 Hr Interval Summary Free Text/Dictation pt complains of mid back pain (intrascapular) with L arm pain radiating from neck to hand with sob last nightm, resolved with some pain medications denies prior episodes Exam/Review of Systems Vital Signs Vitals Vital Signs Date Time Temp Pulse Resp B/P Pulse Ox O2 Delivery O2 Flow Rate FiO2 04/14/17 07:17 98.9 119 18 121/84 95 04/14/17 06:33 Nasal Cannula 2.0 Intake and Output 04/13/17 04/13/17 04/14/17 15:00 23:00 07:00 Intake Total 400 ml 1075 ml 900 ml Output Total 1000 ml Balance 400 ml 1075 ml -100 ml Exam nad, ctab, rrr, soft min tender Results Result Diagram: 04/14/17 0508 04/13/17 0504 Results 24 hrs Laboratory Tests Test 04/14/17 05:08 White Blood Count 11.1 #H Red Blood Count 3.50 L Hemoglobin 10.7 L Hematocrit 32.9 L Mean Corpuscular Volume 94.0 Mean Corpuscular Hemoglobin 30.6 Mean Corpuscular Hemoglobin Concent 32.5 Red Cell Distribution Width 13.4 Platelet Count 155 Mean Platelet Volume 11.5 H Neutrophils % 69.4 Lymphocytes % 19.6 Monocytes % 8.4 Eosinophils % 1.9 Basophils % 0.3 Nucleated Red Blood Cells % 0.0 Neutrophils # 7.7 H Lymphocytes # 2.2 Monocytes # 0.9 Eosinophils # 0.2 Basophils # 0.0 Nucleated Red Blood Cells # 0.0 Medications Medications Current Medications Ondansetron HCl (Zofran Inj) 4 mg Q4H PRN IV nausea; Start 04/11/17 at 04:30 Morphine Sulfate (morphine) 2 mg Q2H PRN IV pain Last administered on t 02:43; Admin Dose 2 MG; Start 04/11/17 at 04:30 Hydralazine HCl 25 mg 25 mg Q6H PRN PO abp>160; Start 04/11/17 at 04:30 Sodium Chloride (NS) 1,000 ml @ 75 mls/hr [id number] IV Last administered on 12:09; Admin Dose 75 MLS/HR; Start 04/11/17 at 04:30 Aspirin (Halfprin) 81 mg DAILY PO Last administered on 04/14/17 09:25; Admin Dose 81 MG; Start 04/11/17 at 09:00 Carvedilol (Coreg) 6.25 mg BID PO Last administered on 04/14/17 09:26; Admin Dose 6.25 MG; Start 04/11/17 at 09:00 Lisinopril (Zestril) 5 mg DAILY PO Last administered on 04/14/17 09:25; Admin Dose 5 MG; Start 04/11/17 at 09:00 Atorvastatin Calcium (Lipitor) 20 mg DAILY@21 PO Last administered on 21:32; Admin Dose 20 MG; Start 04/11/17 at 21:00 Acetaminophen (Tylenol Tab) 650 mg Q6H PRN PO PAIN LEVEL 1-3 OR FEVER Last administered on 04/12/17 21:35; Admin Dose 650 MG; Start 04/11/17 at 12:00 Pantoprazole (Protonix Iv) 40 mg DAILY@06 IV Last administered on 04/14/17 05 :44; Admin Dose 40 MG; Start 04/12/17 at 06:00 SHARMAINE TITUS MD Apr 14, 2017 11:25
[2017-04-14] MEDS: SOD CHLORIDE 0.9% 1,000 ML IV SCH (12:30)
[2017-04-14] MEDS ORDERED: SOD CHLORIDE 0.9% 100 ML ONE (13:55)
[2017-04-14] MEDS ORDERED: IOHEXOL 100 ML ONE (13:55)
--- NOTE | 2017-04-14 14:34 | RADRPT ---
PROCEDURE: CT Thoracic Angiogram. CLINICAL INDICATION: Chest pain. Rule out aortic aneurysm or dissection. TECHNIQUE: CT thoracic aortic angiogram and a CT scan of the chest with contrast was performed on the multi-slice CT scanner. The patient was scanned following the uncomplicated intravenous administ ration of 100 cc of Omnipaque 350 intravenous contrast. 2-D coronal reformatted images were obtaine d from the axial source images. 3-D post-processing performed. DICOM images are available. DLP = 485.1 mGy-cm. CTDIVol = 77.5, 13.1 mGy. One or more of the following dose reduction techniques were used: Automated exposure control. Adjustment of the mA and/or kV according to patient size. Use of iterative reconstruction technique. COMPARISON: 09/12/2013 FINDINGS: CT thoracic aortic angiogram: The thoracic aorta is well visualized and is normal. No aortic aneurysm or dissection is seen. No abnormality of the aortic root is identified. Pulmonary arteries show normal opacification without e vidence of pulmonary emboli. Aortic vascular and coronary calcifications are present. CT chest: There are small bilateral pleural effusions with bibasilar atelectasis. There is no alveolar infiltr ate, edema, or masses.. The central tracheobronchial tree appears within normal limits. There is no evidence of mediastinal or hilar adenopathy or mass. The heart size is mildly enlarged w ithout evidence for pericardial thickening or effusion. The axillary regions, subpectoral regions, and supraclavicular regions are all unremarkable. Imagin g obtained through the upper abdomen reveals no acute abnormality. The surrounding osseous structur es are remarkable for mild degenerative spondylosis of the spine. No osteolytic or osteoblastic le joanie is detected.. IMPRESSION: 1. No evidence of aortic aneurysm, dissection or pulmonary emboli. 2. Small bilateral pleural effusions. 3. Mild cardiomegaly with calcific atherosclerosis of the aorta and coronary arteries. . RPTAT: QQ .Meir Russ MD, MD Date Time Electronically viewed and signed by .Meir Russ MD, MD on 04/14/2017 14:34 .L/
--- NOTE | 2017-04-14 16:32 | RADRPT ---
PROCEDURE: XR Chest. CLINICAL INDICATION: Chest pain TECHNIQUE: PA and lateral chest x-ray. COMPARISON: 04/11/2016 FINDINGS: The nasogastric tube has been removed. Diffuse bilateral interstitial infiltrates or edema are impro ashtyn. Underlying chronic interstitial changes are present. Small bilateral pleural effusions are pres ent.. Cardiomegaly with calcific atherosclerosis of the aorta is seen.. The osseous structures are unremarkable. IMPRESSION: 1. Decreased diffuse bilateral interstitial edema. 2. Underlying chronic interstitial changes of the lungs. 3. Small bilateral pleural effusions. . RPTAT: QQ .Meir Russ MD, Date Time Electronically viewed and signed by .Meir Russ MD, MD on 04/14/2017 16:32 .L/
[2017-04-14] MEDS: ATORVASTATIN 20 MG TAB PO SCH (20:24)
[2017-04-15] VITALS (13 sets, daily range): BP systolic 101–136; BP diastolic 55–83; PULSE 83–109; RESP 19–21
[2017-04-15] MEDS: PANTOPRAZOLE 40 MG INJ IV SCH (06:27)
[2017-04-15] MEDS: SOD CHLORIDE 0.9% 1,000 ML IV SCH (06:27)
[2017-04-15 07:51] LABS: BASOPHILS % 0.4 % (0.0-2.0); EOSINOPHILS # 0.2 10^3/ul (0.0-0.5); EOSINOPHILS % 2.1 % (0.0-7.0); HEMATOCRIT 28.8 % (37.0-47.0); HEMOGLOBIN 9.5 g/dl (12.0-16.0); LYMPHOCYTES # 1.7 10^3/ul (0.8-2.9); LYMPHOCYTES % 20.4 % (15.0-51.0); MEAN CORPUSCULAR HEMOGLOBIN 31.1 pg (29.0-33.0); MEAN CORPUSCULAR VOLUME 94.4 fl (82.0-101.0); MEAN PLATELET VOLUME 11.6 fl (7.4-10.4); MONOCYTE # 0.9 10^3/ul (0.3-0.9); MONOCYTES % 10.4 % (0.0-11.0); NEUTROPHIL # 5.5 10^3/ul (1.6-7.5); NEUTROPHILS % 66.2 % (39.0-77.0); PLATELET COUNT 152 10^3/UL (140-415); RED BLOOD COUNT 3.05 10^6/ul (4.20-5.40); RED CELL DISTRIBUTION WIDTH 13.5 % (11.5-14.5); WHITE BLOOD COUNT 8.3 10^3/ul (4.8-10.8)
[2017-04-15] MEDS: ASPIRIN (EC) 81 MG TAB PO SCH (08:11)
[2017-04-15] MEDS: LISINOPRIL 5 MG TAB PO SCH (08:12)
[2017-04-15 08:24] LABS: ALBUMIN/GLOBULIN RATIO 1.07; BILIRUBIN,INDIRECT 0.8 mg/dl (0-1.1); BILIRUBIN,TOTAL 0.8 mg/dl (0.2-1.3); CALCIUM 8.8 mg/dl (8.4-10.2); CREATININE 0.77 mg/dl (0.44-1.00); POTASSIUM 3.7 mmol/L (3.5-5.1); TOTAL PROTEIN 5.8 g/dl (6.1-8.1)
--- NOTE | 2017-04-15 09:36 | CONS ---
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% Mild troponin elevation Moderate to severe mitral valve regurgitation Tricuspid valve regurgitation Pulmonary hypertension Atypical arm pain Marked anemia SBO Problems: Additional Assessment/Plan 1) will check BNP 2) will start diuresis 3) will not proceed with stress test at this time given elevated troponins, likely in conjunction with LV dilatation 4) high treshold for invasive strategy given marked anemia 5) repeat troponin 6) limit fluids 7) echo Consultation Date/Type/Reason Admit Date/Time Apr 11, 2017 at 04:05 Initial Consult Date 04/12/17 Type of Consultation: cv Referring Provider: MELISSA MCMILLAN 24 HR Interval Summary Free Text/Dictation patient yesterday with SOB gradually increasing and episode of left arm pain, no chest pain, no syncope or near syncope, no palpitations, Detailed Summary Respiratory: shortness of breath Cardiovascular: no complaints Gastrointestinal: no complaints Musculoskeletal: no complaints Skin: no complaints Neurologic: no complaints Exam/Review of Systems Vital Signs Vitals Vital Signs Date Time Temp Pulse Resp B/P Pulse Ox O2 Delivery O2 Flow Rate FiO2 04/15/17 08:01 83 04/15/17 07:58 98.6 20 107/55 94 04/14/17 20:25 Nasal Cannula 2.0 Intake and Output 04/14/17 04/14/17 04/15/17 15:00 23:00 07:00 Intake Total 428 ml 250 ml Balance 428 ml 250 ml Exam Constitutional: alert, oriented Head: atraumatic, normocephalic Neck: jvd Respiratory: diminished breath sounds Cardiovascular: regular rate and rhythm Gastrointestinal: soft Musculoskeletal: nl extremities to inspection Extremities: normal pulses Results Result Diagram: 04/15/17 0644 04/15/17 0644 Results 24 hrs Laboratory Tests Test 04/14/17 12:01 04/14/17 15:15 04/15/17 06:44 Troponin I 0.054 0.073 White Blood Count 8.3 # Red Blood Count 3.05 L Hemoglobin 9.5 L Hematocrit 28.8 L Mean Corpuscular Volume 94.4 Mean Corpuscular Hemoglobin 31.1 Mean Corpuscular Hemoglobin Concent 33.0 Red Cell Distribution Width 13.5 Platelet Count 152 Mean Platelet Volume 11.6 H Neutrophils % 66.2 Lymphocytes % 20.4 Monocytes % 10.4 Eosinophils % 2.1 Basophils % 0.4 Nucleated Red Blood Cells % 0.0 Neutrophils # 5.5 Lymphocytes # 1.7 Monocytes # 0.9 Eosinophils # 0.2 Basophils # 0.0 Nucleated Red Blood Cells # 0.0 Sodium Level 137 Potassium Level 3.7 Chloride Level 103 Carbon Dioxide Level 26 Anion Gap 12 Blood Urea Nitrogen 9 Creatinine 0.77 Glucose Level 105 Calcium Level 8.8 Total Bilirubin 0.8 Direct Bilirubin 0.00 Indirect Bilirubin 0.8 Aspartate Amino Transf (AST/SGOT) 16 Alanine Aminotransferase (ALT/SGPT) 30 Alkaline Phosphatase 47 Total Protein 5.8 L Albumin 3.0 L Globulin 2.80 Albumin/Globulin Ratio 1.07 Medications Medications Current Medications Ondansetron HCl (Zofran Inj) 4 mg Q4H PRN IV nausea; Start 04/11/17 at 04:30 Morphine Sulfate (morphine) 2 mg Q2H PRN IV pain Last administered on 02:43; Admin Dose 2 MG; Start 04/11/17 at 04:30 Hydralazine HCl 25 mg 25 mg Q6H PRN PO abp>160; Start 04/11/17 at 04:30 Sodium Chloride (NS) 1,000 ml @ 75 mls/hr [id number] IV Last administered on 06:27; Admin Dose 75 MLS/HR; Start 04/11/17 at 04:30 Aspirin (Halfprin) 81 mg DAILY PO Last administered on 04/15/17 08:11; Admin Dose 81 MG; Start 04/11/17 at 09:00 Carvedilol (Coreg) 6.25 mg BID PO Last administered on 04/15/17 08:12; Admin Dose 6.25 MG; Start 04/11/17 at 09:00 Lisinopril (Zestril) 5 mg DAILY PO Last administered on 04/15/17 08:12; Admin Dose 5 MG; Start 04/11/17 at 09:00 Atorvastatin Calcium (Lipitor) 20 mg DAILY@21 PO Last administered on 20:24; Admin Dose 20 MG; Start 04/11/17 at 21:00 Acetaminophen (Tylenol Tab) 650 mg Q6H PRN PO PAIN LEVEL 1-3 OR FEVER Last administered on 04/12/17 21:35; Admin Dose 650 MG; Start 04/11/17 at 12:00 Pantoprazole (Protonix Iv) 40 mg DAILY@06 IV Last administered on 04/15/17 06 :27; Admin Dose 40 MG; Start 04/12/17 at 06:00 RICHARDSON VU MD Apr 15, 2017 09:36
[2017-04-15] MEDS: POTASSIUM CHLORIDE (SR) 20 MEQ TAB PO SCH (10:24)
[2017-04-15] MEDS: FUROSEMIDE 20 MG INJ IV SCH (10:25)
[2017-04-15 11:30] LABS: MAGNESIUM 1.6 mg/dl (1.7-2.5)
--- NOTE | 2017-04-15 15:14 | PN ---
Date/Time of Note Date/Time of Note DATE: 04/15/17 TIME: 15:13 Assessment/Plan VTE Prophylaxis VTE Prophylaxis Intervention: SCD's Lines/Catheters IV [facility]from [facility] Urinary Cath still in place: No Assessment/Plan Assessment/Plan 86-year-old female with: 1. Chest pain: Patient with known history of nonischemic cardiomyopathy and severe mitral regurgitation, she has been transferred to telemetry appropriately , no arrhythmias noted. Appreciate recommendation from cardiology. 2D echocardiogram has been repeated. Patient does not need a stress test. Troponins were borderline high normal, will recheck another series of cardiac enzymes 3. Follow-up further recommendations from cardiology and in a.m. 2. Status post small bowel obstruction, now resolved clinically. Patient tolerating p.o. She is passing gas and having bowel movements. Appreciate all the recommendations from general surgery. Tolerating p.o., DC IV fluids. 3. Nonischemic cardiomyopathy with ejection fraction of 25%, patient with elevated BNP and small pleural effusion on CAT scan, agree with dose of Lasix today. DC IV fluids. Continue home medications. 4. Congestive heart failure, chronic systolic dysfunction, patient euvolemic. DC IV fluids now that patient tolerating p.o. Lasix as needed. 5. Moderate to severe mitral regurgitation, followed by cardiology as an outpatient. She has been stable. 6. Pulmonary hypertension: Respiratory status remains stable. 7. Hypertension: Continue current medications. Prophylaxis: Protonix for GI prophylaxis, SCDs to lower extremity for DVT prophylaxis Disposition: SBO clinically resolved, episode of chest pain yesterday, she will be monitored overnight with serial cardiac enzymes. Follow-up cardiology recommendations in a.m., hopefully discharge planning in the next 24 hours if cardiac enzymes remain negative. Subjective 24 Hr Interval Summary Free Text/Dictation Patient feels better today, she denies any pain, appreciate recommendations from cardiology, no need for stress test, will check her cardiac enzymes 3 and echocardiogram has been repeated. CT angiogram of the chest is negative. Monitor another 24 hours and hopefully will be able to discharge home by tomorrow. Also patient did receive Lasix for diuresis. I have discontinued her IV fluids. Exam/Review of Systems Vital Signs Vitals Vital Signs Date Time Temp Pulse Resp B/P Pulse Ox O2 Delivery O2 Flow Rate FiO2 04/15/17 12:22 88 04/15/17 11:29 97.9 20 108/59 95 04/15/17 08:00 Nasal Cannula 2.0 Intake and Output 04/14/17 04/14/17 04/15/17 15:00 23:00 07:00 Intake Total 428 ml 250 ml Balance 428 ml 250 ml Exam Constitutional: alert, oriented, well developed Respiratory: clear to auscultation, normal air movement Cardiovascular: regular rate and rhythm Gastrointestinal: non-tender, soft Musculoskeletal: nl extremities to inspection Extremities: normal pulses, other (No edema, clubbing or cyanosis) Neurological: BEAD CUTTER II-XII intact, nl mental status, nl speech, nl strength Results Result Diagram: 04/15/17 0644 04/15/17 0644 Results 24 hrs Laboratory Tests Test 04/14/17 15:15 04/15/17 06:44 Troponin I 0.073 White Blood Count 8.3 # Red Blood Count 3.05 L Hemoglobin 9.5 L Hematocrit 28.8 L Mean Corpuscular Volume 94.4 Mean Corpuscular Hemoglobin 31.1 Mean Corpuscular Hemoglobin Concent 33.0 Red Cell Distribution Width 13.5 Platelet Count 152 Mean Platelet Volume 11.6 H Neutrophils % 66.2 Lymphocytes % 20.4 Monocytes % 10.4 Eosinophils % 2.1 Basophils % 0.4 Nucleated Red Blood Cells % 0.0 Neutrophils # 5.5 Lymphocytes # 1.7 Monocytes # 0.9 Eosinophils # 0.2 Basophils # 0.0 Nucleated Red Blood Cells # 0.0 Sodium Level 137 Potassium Level 3.7 Chloride Level 103 Carbon Dioxide Level 26 Anion Gap 12 Blood Urea Nitrogen 9 Creatinine 0.77 Glucose Level 105 Calcium Level 8.8 Magnesium Level 1.6 L Total Bilirubin 0.8 Direct Bilirubin 0.00 Indirect Bilirubin 0.8 Aspartate Amino Transf (AST/SGOT) 16 Alanine Aminotransferase (ALT/SGPT) 30 Alkaline Phosphatase 47 B-Type Natriuretic Peptide 89580 H Total Protein 5.8 L Albumin 3.0 L Globulin 2.80 Albumin/Globulin Ratio 1.07 Imaging Free Text/Dictation PROCEDURE: CT Thoracic Angiogram. CLINICAL INDICATION: Chest pain. Rule out aortic aneurysm or dissection. TECHNIQUE: CT thoracic aortic angiogram and a CT scan of the chest with contrast was performed on the multi-slice CT scanner. The patient was scanned following the uncomplicated intravenous administration of 100 cc of Omnipaque 350 intravenous contrast. 2-D coronal reformatted images were obtained from the axial source images. 3-D post-processing performed. DICOM images are available. DLP = 485.1 mGy-cm. CTDIVol = 77.5, 13.1 mGy. One or more of the following dose reduction techniques were used: Automated exposure control. Adjustment of the mA and/or kV according to patient size. Use of iterative reconstruction technique. COMPARISON: 09/12/2013 FINDINGS: CT thoracic aortic angiogram: The thoracic aorta is well visualized and is normal. No aortic aneurysm or dissection is seen. No abnormality of the aortic root is identified. Pulmonary arteries show normal opacification without evidence of pulmonary emboli. Aortic vascular and coronary calcifications are present. CT chest: There are small bilateral pleural effusions with bibasilar atelectasis. There is no alveolar infiltrate, edema, or masses.. The central tracheobronchial tree appears within normal limits. There is no evidence of mediastinal or hilar adenopathy or mass. The heart size is mildly enlarged without evidence for pericardial thickening or effusion. The axillary regions, subpectoral regions, and supraclavicular regions are all unremarkable. Imaging obtained through the upper abdomen reveals no acute abnormality. The surrounding osseous structures are remarkable for mild degenerative spondylosis of the spine. No osteolytic or osteoblastic lesion is detected.. IMPRESSION: 1. No evidence of aortic aneurysm, dissection or pulmonary emboli. 2. Small bilateral pleural effusions. 3. Mild cardiomegaly with calcific atherosclerosis of the aorta and coronary arteries. . RPTAT: QQ .Meir Russ MD, MD Date Time Electronically viewed and signed by .Meir Russ MD, MD on 04/14/2017 14:34 .L/ Medications Medications Current Medications Ondansetron HCl (Zofran Inj) 4 mg Q4H PRN IV nausea; Start 04/11/17 at 04:30 Morphine Sulfate (morphine) 2 mg Q2H PRN IV pain Last administered on t 02:43; Admin Dose 2 MG; Start 04/11/17 at 04:30 Hydralazine HCl (Apresoline) 25 mg Q6H PRN PO abp>160; Start 04/11/17 at 04:30 Aspirin (Halfprin) 81 mg DAILY PO Last administered on 04/15/17 08:11; Admin Dose 81 MG; Start 04/11/17 at 09:00 Carvedilol (Coreg) 6.25 mg BID PO Last administered on 04/15/17 08:12; Admin Dose 6.25 MG; Start 04/11/17 at 09:00 Lisinopril (Zestril) 5 mg DAILY PO Last administered on 04/15/17 08:12; Admin Dose 5 MG; Start 04/11/17 at 09:00 Atorvastatin Calcium (Lipitor) 20 mg DAILY@21 PO Last administered on 20:24; Admin Dose 20 MG; Start 04/11/17 at 21:00 Acetaminophen (Tylenol Tab) 650 mg Q6H PRN PO PAIN LEVEL 1-3 OR FEVER Last administered on 04/12/17 21:35; Admin Dose 650 MG; Start 04/11/17 at 12:00 Pantoprazole (Protonix Iv) 40 mg DAILY@06 IV Last administered on 04/15/17 06 :27; Admin Dose 40 MG; Start 04/12/17 at 06:00 Furosemide (Lasix) 20 mg DAILY IV Last administered on 04/15/17 10:25; Admin Dose 20 MG; Start 04/15/17 at 09:30 Potassium Chloride 20 meq 20 meq DAILY PO Last administered on 04/15/17 10:24 ; Admin Dose 20 MEQ; Start 04/15/17 at 09:30 Magnesium Sulfate/ Dextrose (Magnesium Sulfate/D5W) 106 ml @ 35.333 mls/ hr ONCE ONCE IVPB ; Start 04/15/17 at 16:30; Stop 04/15/17 at 19:29 MELISSA MCMILLAN Apr 15, 2017 15:14 MELISSA MCMILLNA Apr 15, 2017 15:14
[2017-04-15 17:46] LABS: CK-MB 0.56 ng/ml (0.0-2.4); TROPONIN-I 0.066 ng/ml (0.00-0.12)
[2017-04-15] MEDS: MAGNESIUM SULFATE 3 GM in DEXTROSE 5% 100 ML IVPB ONE ×2 (18:38→18:41)
[2017-04-15] MEDS: ATORVASTATIN 20 MG TAB PO SCH (20:16)
[2017-04-15 21:47] LABS: CK-MB 0.49 ng/ml (0.0-2.4); TROPONIN-I 0.06 ng/ml (0.00-0.12)
[2017-04-16] VITALS (8 sets, daily range): BP systolic 96–118; BP diastolic 55–69; PULSE 88–103; RESP 16–18
[2017-04-16 05:45] LABS: BASOPHIL # 0.1 10^3/ul (0.0-0.1); BASOPHILS % 0.5 % (0.0-2.0); EOSINOPHILS # 0.2 10^3/ul (0.0-0.5); EOSINOPHILS % 2.2 % (0.0-7.0); HEMATOCRIT 29.9 % (37.0-47.0); HEMOGLOBIN 10.1 g/dl (12.0-16.0); LYMPHOCYTES # 1.9 10^3/ul (0.8-2.9); LYMPHOCYTES % 18.8 % (15.0-51.0); MEAN CORPUSCULAR HEMOGLOBIN 31.2 pg (29.0-33.0); MEAN CORPUSCULAR HGB CONC 33.8 g/dl (32.0-37.0); MEAN CORPUSCULAR VOLUME 92.3 fl (82.0-101.0); MEAN PLATELET VOLUME 11.4 fl (7.4-10.4); MONOCYTES % 9.4 % (0.0-11.0); NEUTROPHILS % 68.6 % (39.0-77.0); PLATELET COUNT 167 10^3/UL (140-415); RED BLOOD COUNT 3.24 10^6/ul (4.20-5.40); RED CELL DISTRIBUTION WIDTH 13.3 % (11.5-14.5); WHITE BLOOD COUNT 10.3 10^3/ul (4.8-10.8)
[2017-04-16 06:08] LABS: CALCIUM 8.8 mg/dl (8.4-10.2); CREATININE 0.77 mg/dl (0.44-1.00); POTASSIUM 4.1 mmol/L (3.5-5.1)
[2017-04-16] MEDS: PANTOPRAZOLE 40 MG INJ IV SCH (06:14)
[2017-04-16 06:15] LABS: MAGNESIUM 2.1 mg/dl (1.7-2.5); PHOSPHORUS 3.6 mg/dl (2.5-4.9)
[2017-04-16 06:23] LABS: CK-MB 0.36 ng/ml (0.0-2.4); TROPONIN-I 0.075 ng/ml (0.00-0.12)
--- NOTE | 2017-04-16 08:44 | RADRPT ---
Echocardiogram Report Patient Name: NAOMIE WELCH Gender: Female Date: 1930 Study Date: 15-Apr-2017 Medical I D Sales: [facility]ENJ[facility] Location: 501 Ref. Physician: RICHARDSON VU Quality: Good Procedures: Transthoracic echocardiogram with complete 2D, M-Mode, and doppler examination. Indications: Chest Pain. 2D/M Mode Doppler Measurement Value Normal Ranges Measurement Value Normal Ranges AoR Diam MM 3.1 cm COLLEEN Vmax 2.6 cm2 LA/Ao MM 1.3 COLLEEN VTI 2.6 cm2 LA Dimen MM 4.1 cm AV Mean Cisco 1.0 m/sec LVIDd 2D 5.6 3.5 - 5.6 cm AV Mean PG 4.0 mmHg LVIDs 2D 5.1 2.1 - 4.1 cm AV Peak Cisco 1.3 m/sec LVPWd 2D 1.0 0.6 - 1.1 cm AV Peak PG 6.6 mmHg IVSd 2D 1.1 0.6 - 1.1 cm AV VTI 20.5 cm EDV 2D 156.5 cm3 LVOT Peak Cisco 1.1 m/sec ESV 2D 134.3 cm3 LVOT Peak PG 4.4 mmHg EF 2D 20.0 50.0 - 65.0 % MV E Peak Cisco 1.2 m/sec LVOT Diam 2.0 cm MV A Peak Cisco 0.6 m/sec MV E/A 2.0 MV Decel Time 119 msec MV Decel Sublette 10 MV E/A 2.0 TR Peak Cisco 3.0 m/sec TR Peak PG 35.0 mmHg RVSP 43.0 mmHg RA Pressure 8.0 Findings Left Ventricle: Mild enlargement of left ventricle cavity. Severe left ventricular systolic dysfunction. Ejection fraction is visually estimated at 20 %. Abnormal Diastolic Function. Multiple segmental wall motion abnormalities. Right Ventricle: Normal right ventricular size. Normal right ventricular systolic function. Left Atrium: There is mild enlargement of left atrium. Right Atrium: The right atrium is normal in size. Mitral Valve: Normal appearance of the mitral valve. Mild mitral annular calcification. Moderate mitral valve regurgitation. Aortic Valve: Normal appearance of the aortic valve. No significant aortic stenosis with trivial insufficiency. Tricuspid Valve: Normal appearance of the tricuspid valve. Estimated peak PA systolic pressure 43 mmHg. There is mild tricuspid regurgitation. Pulmonic Valve: Normal pulmonic valve appearance. There is trace to mild pulmonic regurgitation. Pericardium: Normal pericardium with no significant pericardial effusion. Aorta: Normal aortic root. IVC: Dilated IVC with respiratory collapse consistent with elevated right atrial pressure. Conclusions 1.Mild enlargement of left ventricle cavity. Severe left ventricular systolic dysfunction. Ejection fraction is visually estimated at 20 %. Abnormal Diastolic Function. Multiple segmental wall motion abnormalities. 2.There is mild enlargement of left atrium. 3.Normal appearance of the mitral valve. Mild mitral annular calcification. Moderate mitral valve regurgitation. 4.Normal appearance of the tricuspid valve. Estimated peak PA systolic pressure 43 mmHg. There is mild tricuspid regurgitation. Electronically Signed By: Dhaval Salgado 15-Apr-2017 15:04:15 -0800 Patient Name: NAOMIE WELCH Study Date: 15-Apr-2017 [id number]
[2017-04-16] MEDS: FUROSEMIDE 20 MG INJ IV SCH (08:58)
[2017-04-16] MEDS: POTASSIUM CHLORIDE (SR) 20 MEQ TAB PO SCH (08:58)
[2017-04-16] MEDS: ASPIRIN (EC) 81 MG TAB PO SCH (08:58)
[2017-04-16] MEDS: LISINOPRIL 5 MG TAB PO SCH (08:58)
--- NOTE | 2017-04-16 09:10 | CONS ---
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 6) prognosis guarded, high complexity will seek to discuss w family Consultation Date/Type/Reason Admit Date/Time Apr 11, 2017 at 04:05 Initial Consult Date 04/12/17 Type of Consultation: cv Referring Provider: MELISSA MCMILLAN 24 HR Interval Summary Free Text/Dictation ambulating, no sob, no chest pain Detailed Summary Respiratory: no complaints Cardiovascular: no complaints Gastrointestinal: no complaints Musculoskeletal: no complaints Skin: no complaints Exam/Review of Systems Vital Signs Vitals Vital Signs Date Time Temp Pulse Resp B/P Pulse Ox O2 Delivery O2 Flow Rate FiO2 04/16/17 08:05 Nasal Cannula 2.0 04/16/17 08:05 90 04/16/17 07:39 97.5 16 115/62 94 Intake and Output 04/15/17 04/15/17 04/16/17 15:00 23:00 07:00 Intake Total 1700 ml 480 ml Balance 1700 ml 480 ml Exam Constitutional: alert, oriented Head: atraumatic, normocephalic Neck: supple Respiratory: clear to auscultation Cardiovascular: regular rate and rhythm Gastrointestinal: soft Musculoskeletal: nl extremities to inspection Results Result Diagram: 04/16/17 0515 04/16/17 0514 Results 24 hrs Laboratory Tests Test 04/15/17 16:58 04/15/17 21:04 04/16/17 05:14 04/16/17 05:15 Creatine Kinase 27 28 24 Creatine Kinase Index 2.1 1.8 1.5 Creatinine Kinase MB (Mass) 0.56 0.49 0.36 Troponin I 0.066 0.060 0.075 Sodium Level 136 Potassium Level 4.1 Chloride Level 102 Carbon Dioxide Level 26 Anion Gap 12 Blood Urea Nitrogen 12 Creatinine 0.77 Glucose Level 108 Calcium Level 8.8 Phosphorus Level 3.6 Magnesium Level 2.1 White Blood Count 10.3 # Red Blood Count 3.24 L Hemoglobin 10.1 L Hematocrit 29.9 L Mean Corpuscular Volume 92.3 Mean Corpuscular Hemoglobin 31.2 Mean Corpuscular Hemoglobin Concent 33.8 Red Cell Distribution Width 13.3 Platelet Count 167 Mean Platelet Volume 11.4 H Neutrophils % 68.6 Lymphocytes % 18.8 Monocytes % 9.4 Eosinophils % 2.2 Basophils % 0.5 Nucleated Red Blood Cells % 0.0 Neutrophils # 7.0 Lymphocytes # 1.9 Monocytes # 1.0 H Eosinophils # 0.2 Basophils # 0.1 Nucleated Red Blood Cells # 0.0 Medications Medications Current Medications Ondansetron HCl (Zofran Inj) 4 mg Q4H PRN IV nausea; Start 04/11/17 at 04:30 Morphine Sulfate (morphine) 2 mg Q2H PRN IV pain Last administered on 02:43; Admin Dose 2 MG; Start 04/11/17 at 04:30 Hydralazine HCl (Apresoline) 25 mg Q6H PRN PO abp>160; Start 04/11/17 at 04:30 Aspirin (Halfprin) 81 mg DAILY PO Last administered on 04/16/17 08:58; Admin Dose 81 MG; Start 04/11/17 at 09:00 Carvedilol (Coreg) 6.25 mg BID PO Last administered on 04/16/17 08:58; Admin Dose 6.25 MG; Start 04/11/17 at 09:00 Lisinopril (Zestril) 5 mg DAILY PO Last administered on 04/16/17 08:58; Admin Dose 5 MG; Start 04/11/17 at 09:00 Atorvastatin Calcium (Lipitor) 20 mg DAILY@21 PO Last administered on 20:16; Admin Dose 20 MG; Start 04/11/17 at 21:00 Acetaminophen (Tylenol Tab) 650 mg Q6H PRN PO PAIN LEVEL 1-3 OR FEVER Last administered on 04/12/17 21:35; Admin Dose 650 MG; Start 04/11/17 at 12:00 Pantoprazole (Protonix Iv) 40 mg DAILY@06 IV Last administered on 04/16/17 06 :14; Admin Dose 40 MG; Start 04/12/17 at 06:00 Furosemide (Lasix) 20 mg DAILY IV Last administered on 04/16/17 08:58; Admin Dose 20 MG; Start 04/15/17 at 09:30 Potassium Chloride (Klor-Con 20) 20 meq DAILY PO Last administered on 08:58; Admin Dose 20 MEQ; Start 04/15/17 at 09:30 RICHARDSON VU MD Apr 16, 2017 09:10
[2017-04-16] MEDS ORDERED: SPIRONOLACTONE 25 MG TAB PO SCH (09:30)
--- NOTE | 2017-04-16 13:30 | PN ---
Date/Time of Note Date/Time of Note DATE: 04/16/17 TIME: 13:04 Assessment/Plan VTE Prophylaxis VTE Prophylaxis Intervention: SCD's Lines/Catheters IV Catheter Type (from [facility] Saline Lock Urinary Cath still in place: No Assessment/Plan Assessment/Plan 86-year-old female with: 1. Chest pain: Patient with known history of nonischemic cardiomyopathy and severe mitral regurgitation, she has been transferred to telemetry appropriately , no arrhythmias noted. Appreciate recommendation from cardiology. 2D echocardiogram has been repeated. Patient does not need a stress test. Troponins were borderline high normal, cardiac enzymes remained normal yesterday. Patient has no further chest pain or complains of shortness of breath. Medications have been adjusted appropriately. Appreciate recommendations from cardiology. Discharge home today with outpatient follow-up with Dr. Herrera, her primary superintendent greens and she can be further referred to electrophysiology after discussion regarding possible need of an ICD. 2. Status post small bowel obstruction, now resolved clinically. Patient tolerating p.o. She is passing gas and having bowel movements. Appreciate all the recommendations from general surgery. Tolerating p.o., bowel regimen to stay regular. 3. Nonischemic cardiomyopathy with ejection fraction of 25%, patient with elevated BNP and small pleural effusion on CAT scan, Agree with low-dose Lasix and spironolactone. Monitor labs as an outpatient with primary care physician and superintendent greens. Continue other home medications. 4. Congestive heart failure, chronic systolic dysfunction, patient euvolemic. 5. Moderate to severe mitral regurgitation, followed by cardiology as an outpatient. She has been stable. 6. Pulmonary hypertension: Respiratory status remains stable. 7. Hypertension: Continue current medications. Prophylaxis: Protonix for GI prophylaxis, SCDs to lower extremity for DVT prophylaxis Disposition: SBO clinically resolved, episode of chest pain resolved, patient has been monitored and will be discharged home today with outpatient cardiology and primary care physician follow-up. Subjective 24 Hr Interval Summary Free Text/Dictation Patient remained stable, she did get a dose of spironolactone, blood pressure is stable. She did ambulate in the hallway with myself and the nurse, no dizziness or no chest pain. She will be discharged home today with follow-up with her primary care physician and superintendent greens. She is still passing gas, however she is concerned she did not have a bowel movement for 2 days, she will be given a dose of milk of magnesia that apparently she takes daily as outpatient. Exam/Review of Systems Vital Signs Vitals Vital Signs Date Time Temp Pulse Resp B/P Pulse Ox O2 Delivery O2 Flow Rate FiO2 04/16/17 11:49 97.8 95 16 96/55 98 04/16/17 08:05 Nasal Cannula 2.0 Intake and Output 04/15/17 04/15/17 04/16/17 15:00 23:00 07:00 Intake Total 1700 ml 480 ml Balance 1700 ml 480 ml Exam Constitutional: alert, oriented, well developed Respiratory: clear to auscultation, normal air movement Cardiovascular: nl pulses, regular rate and rhythm Gastrointestinal: non-tender, soft Musculoskeletal: nl extremities to inspection Extremities: normal pulses, other (No edema, clubbing or cyanosis) 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, nl mental status, nl speech, nl strength (at baseline ) Results Result Diagram: 04/16/17 0515 04/16/17 0514 Results 24 hrs Laboratory Tests Test 04/15/17 16:58 04/15/17 21:04 04/16/17 05:14 04/16/17 05:15 Creatine Kinase 27 28 24 Creatine Kinase Index 2.1 1.8 1.5 Creatinine Kinase MB (Mass) 0.56 0.49 0.36 Troponin I 0.066 0.060 0.075 Sodium Level 136 Potassium Level 4.1 Chloride Level 102 Carbon Dioxide Level 26 Anion Gap 12 Blood Urea Nitrogen 12 Creatinine 0.77 Glucose Level 108 Calcium Level 8.8 Phosphorus Level 3.6 Magnesium Level 2.1 White Blood Count 10.3 # Red Blood Count 3.24 L Hemoglobin 10.1 L Hematocrit 29.9 L Mean Corpuscular Volume 92.3 Mean Corpuscular Hemoglobin 31.2 Mean Corpuscular Hemoglobin Concent 33.8 Red Cell Distribution Width 13.3 Platelet Count 167 Mean Platelet Volume 11.4 H Neutrophils % 68.6 Lymphocytes % 18.8 Monocytes % 9.4 Eosinophils % 2.2 Basophils % 0.5 Nucleated Red Blood Cells % 0.0 Neutrophils # 7.0 Lymphocytes # 1.9 Monocytes # 1.0 H Eosinophils # 0.2 Basophils # 0.1 Nucleated Red Blood Cells # 0.0 Medications Medications Current Medications Ondansetron HCl (Zofran Inj) 4 mg Q4H PRN IV nausea; Start 04/11/17 at 04:30 Morphine Sulfate (morphine) 2 mg Q2H PRN IV pain Last administered on 02:43; Admin Dose 2 MG; Start 04/11/17 at 04:30 Hydralazine HCl (Apresoline) 25 mg Q6H PRN PO abp>160; Start 04/11/17 at 04:30 Aspirin (Halfprin) 81 mg DAILY PO Last administered on 04/16/17 08:58; Admin Dose 81 MG; Start 04/11/17 at 09:00 Carvedilol (Coreg) 6.25 mg BID PO Last administered on 04/16/17 08:58; Admin Dose 6.25 MG; Start 04/11/17 at 09:00 Lisinopril (Zestril) 5 mg DAILY PO Last administered on 04/16/17 08:58; Admin Dose 5 MG; Start 04/11/17 at 09:00 Atorvastatin Calcium (Lipitor) 20 mg DAILY@21 PO Last administered on 20:16; Admin Dose 20 MG; Start 04/11/17 at 21:00 Acetaminophen (Tylenol Tab) 650 mg Q6H PRN PO PAIN LEVEL 1-3 OR FEVER Last administered on 04/12/17 21:35; Admin Dose 650 MG; Start 04/11/17 at 12:00 Pantoprazole (Protonix Iv) 40 mg DAILY@06 IV Last administered on 04/16/17 06 :14; Admin Dose 40 MG; Start 04/12/17 at 06:00 Potassium Chloride (Klor-Con 20) 20 meq DAILY PO Last administered on 08:58; Admin Dose 20 MEQ; Start 04/15/17 at 09:30 Spironolactone (Aldactone) 12.5 mg DAILY PO Last administered on 04/16/17 12: 15; Admin Dose 12.5 MG; Start 04/16/17 at 09:30 Furosemide (Lasix) 20 mg DAILY PO ; Start 04/17/17 at 09:00 MELISSA MCMILLAN Apr 16, 2017 13:14
--- NOTE | 2017-04-16 13:31 | PDOCDIS ---
Discharge Instructions CONDITION Patient Condition: Stable HOME CARE INSTRUCTIONS: Special Diet: soft diet ACTIVITY: Activity Restrictions: Slowly Increase Activity FOLLOW UP/APPOINTMENTS Follow-up Plan Follow-up with primary care physician within 1 week Follow-up with primary stylist assistant within 1-2 weeks MELISSA MCMILLAN Apr 16, 2017 13:31
[2017-04-16] MEDS ORDERED: LAS20 PO (13:34)
[2017-04-16] MEDS ORDERED: SPIR25TA PO (13:34)
[2017-04-16] MEDS ORDERED: MAGNESIUM HYDROXIDE 30ML CUP PO ONE (14:00)
[2017-04-17] MEDS ORDERED: FUROSEMIDE 20 MG TAB PO SCH (09:00)
== END 2017-04-16 16:10 | disposition home health service (06) | DRG 388 ==
LOC: E/R 22:03 → MS1 04-11 04:05 → TEL 04-11 05:15 → MS1 04-11 15:01 → TEL 04-14 15:25
PROVIDERS: ADMIT Legal Medicine; ATTEND Legal Medicine
DX: K56.50 Intestinal adhesions [bands], unspecified as to partial versus complete obstruction (principal); I50.23 Acute on chronic systolic (congestive) heart failure; I42.8 Other cardiomyopathies; I27.20 Pulmonary hypertension, unspecified; I11.0 Hypertensive heart disease with heart failure; K76.0 Fatty (change of) liver, not elsewhere classified; N28.1 Cyst of kidney, acquired; E86.0 Dehydration; I34.0 Nonrheumatic mitral (valve) insufficiency; Z87.891 Personal history of nicotine dependence; I36.1 Nonrheumatic tricuspid (valve) insufficiency
CPT/HCPCS: 36415; 71010; 71020; 71275; 74176; 74250; 80048; 80053; 81003; 82550; 82553; 83690; 83735; 83880; 84100; 84484; 85025; 93306; 96374; 96375; J1940; C9113; J0744; J2270; J2405; J3475; J7030; Q9967

== ENCOUNTER 2017-08-07 09:54 | Emergency (ER) | END 2017-08-07 11:27 | disposition home or self-care (01) ==

== ENCOUNTER 2017-09-06 14:05 | Observation (INO) | END 2017-09-07 13:12 | disposition home health service (06) ==

== ENCOUNTER 2017-09-27 10:43 | Inpatient (IN) | END 2017-09-28 17:35 | disposition home health service (06) | DRG 293 ==

== ENCOUNTER 2017-10-06 15:46 | Observation (INO) | END 2017-10-09 16:00 | disposition home health service (06) ==

== ENCOUNTER 2017-10-17 12:53 | Inpatient (IN) | END 2017-10-23 18:56 | DRG 227 ==

== ENCOUNTER 2017-12-17 23:03 | Observation (INO) | END 2017-12-19 17:25 | disposition home or self-care (01) ==